=== PATIENT | male | born 1960 | race Two or more races ===

== ENCOUNTER → 2023-11-05 07:36 | Outpatient (REF) | payer OTHER, SELFPAY | LOC: EMG 07:36 | PROVIDERS: ATTENDING PHYSICIAN Orthopaedic Surgery Hand Surgery; FAMILY PHYSICIAN Internal Medicine | DX: M25.511 Pain in right shoulder (principal); R20.0 Anesthesia of skin | CPT/HCPCS: 95886; 95911 ==

== ENCOUNTER 2023-12-02 06:35 | Day surgery (SDC) | payer OTHER, MEDICARE, SELFPAY ==
[2023-11-24 10:31] VITALS: BMI 36.3
[2023-11-24 12:02] LABS: ALT (SGPT) 31 U/L (0-50); AST (SGOT) 55 U/L (17-59); Albumin 4.6 g/dl (3.5-5.0); Alkaline Phosphatase 123 U/L (38-126); Blood Urea Nitrogen 12 mg/dl (9-20); Calcium 9.1 mg/dl (8.4-10.2); Carbon Dioxide 21 mmol/L (22-30); Chloride 107 mmol/L (98-107); Estimated Creatinine Clearance 102 ml/min; Glucose 69 mg/dl (70-99); Potassium 4.5 mmol/L (3.5-5.1); Sodium 137 mmol/L (135-145); Total Bilirubin 2.5 mg/dl (0.2-1.3); Total Protein 7.8 g/dl (6.3-8.2); eGFR > 60.00
[2023-12-02] VITALS (15 sets, daily range): BP systolic 121–159; BP diastolic 78–98; BMI 36.3
[2023-12-02] MEDS: TYLENOL 1000 MG PO (11:10)
[2023-12-02] MEDS: CELEBREX 200 MG PO (11:10)
[2023-12-02] MEDS: NORMOSOL-R 1000 IV (11:37)
[2023-12-02 11:49] LABS: Hematocrit 30.3 % (39.0-52.0); Hemoglobin 11.3 g/dL (13.0-18.0); Mean Corp Hgb Conc. 37.3 g/dL (33.0-37.0); Mean Corpuscular Hgb 29.7 pg (27.0-31.0); Mean Corpuscular Volume 79.5 fL (80.0-94.0); Mean Platelet Volume 11.1 fL (7.4-10.4); Platelet Count 233 10^3/uL (130-400); Red Blood Cell Count 3.81 10^6/uL (4.70-6.10); Red Cell Dist. Width 15.9 % (11.5-14.5); White Blood Cell Count 9.1 10^3/uL (4.8-10.8)
[2023-12-02] MEDS: DEMEROL 12.5 MG IV ×2 (15:33→15:43)
[2023-12-02] MEDS: SUBLIMAZE 50 MCG IV ×3 (16:14→16:47)
[2023-12-02] MEDS: ZOFRAN 4 MG IV (16:37)
[2023-12-02] MEDS: SUBLIMAZE 25 MCG IV ×2 (17:01→17:11)
[2023-12-02] MEDS: ROXICODONE 10 MG PO (17:52)
== END 2023-12-02 18:36 | disposition home or self-care (01) ==
LOC: SDS 06:35
PROVIDERS: ATTENDING PHYSICIAN Orthopaedic Surgery Hand Surgery; FAMILY PHYSICIAN Student in an Organized Health Care Education/Training Program; OTHER PHYSICIAN Internal Medicine Cardiovascular Disease
DX: S42.252A Displaced fracture of greater tuberosity of left humerus, initial encounter for closed fracture (principal); X58.XXXA Exposure to other specified factors, initial encounter; M97.31XA Periprosthetic fracture around internal prosthetic right shoulder joint, initial encounter; G56.21 Lesion of ulnar nerve, right upper limb
CPT/HCPCS: 24140; 64718; 36415; 73030; 80053; 85027; 87070; C1776

== ENCOUNTER → 2024-02-10 07:31 | Outpatient (REF) | payer OTHER, MEDICARE, SELFPAY | LOC: HWRAD 07:31 | PROVIDERS: ATTENDING PHYSICIAN Student in an Organized Health Care Education/Training Program; FAMILY PHYSICIAN Internal Medicine | DX: M19.012 Primary osteoarthritis, left shoulder (principal) | CPT/HCPCS: 73200 ==

== ENCOUNTER → 2024-02-12 07:08 | Outpatient (REF) | payer OTHER, MEDICARE, SELFPAY | LOC: MRI 3T 07:08 | PROVIDERS: ATTENDING PHYSICIAN Orthopaedic Surgery Hand Surgery; FAMILY PHYSICIAN Internal Medicine | DX: M19.012 Primary osteoarthritis, left shoulder (principal) | CPT/HCPCS: 73221 ==

== ENCOUNTER 2024-08-24 13:38 | Inpatient (IN) | payer OTHER, MEDICARE, SELFPAY ==
[2024-07-26 13:38] LABS: Hematocrit 29.9 % (39.0-52.0); Hemoglobin 10.8 g/dL (13.0-18.0); Mean Corp Hgb Conc. 36.1 g/dL (33.0-37.0); Mean Corpuscular Hgb 29.4 pg (27.0-31.0); Mean Corpuscular Volume 81.5 fL (80.0-94.0); Platelet Count 239 10^3/uL (130-400); Red Blood Cell Count 3.67 10^6/uL (4.70-6.10); Red Cell Dist. Width 15.3 % (11.5-14.5); White Blood Cell Count 8.8 10^3/uL (4.8-10.8)
[2024-07-26 13:58] VITALS: BMI 28.7
[2024-07-26 14:26] LABS: ALT (SGPT) 22 U/L (0-50); AST (SGOT) 34 U/L (17-59); Albumin 4.5 g/dl (3.5-5.0); Alkaline Phosphatase 96 U/L (38-126); Blood Urea Nitrogen 9 mg/dl (9-20); Calcium 8.9 mg/dl (8.4-10.2); Carbon Dioxide 26 mmol/L (22-30); Chloride 106 mmol/L (98-107); Estimated Creatinine Clearance 95 ml/min; Glucose 84 mg/dl (70-99); Potassium 4.5 mmol/L (3.5-5.1); Sodium 142 mmol/L (135-145); Total Bilirubin 1.5 mg/dl (0.2-1.3); Total Protein 7.4 g/dl (6.3-8.2); eGFR > 60.00
[2024-07-26 17:55] VITALS: BMI 28.7
[2024-08-24] VITALS (25 sets, daily range): BP systolic 121–171; BP diastolic 76–112; BMI 28.7
[2024-08-24] MEDS: NORMOSOL-R/PLASMALYTE-A 1000 IV ×2 (08:14→17:09)
[2024-08-24] MEDS: MOBIC 15 MG PO (08:14)
[2024-08-24] MEDS: TYLENOL 1000 MG PO (08:14)
[2024-08-24] MEDS: BACTROBAN NASAL 1 GRAM NASAL (08:14)
--- NOTE | 2024-08-24 11:04 | W.DS.TRANS ---
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
-
Discharge Instructions:
Discharge Diagnosis/Procedures L TSA 08/24/24
Diet As tolerated
Activity No strenuous activity
Additional Activity Adequate hydration, minimize Oxy and wear TEDs
stockings to prevent low blood pressure/
dizziness
Driving Restrictions No driving
Instructions:
Stand-Alone Forms: SDS Total Shoulder D/C Inst.
Changes to Home Medications: Yes
Discharge Medications:
DC Medications w/original date entered in [employer]
albuterol sulfate 90 mcg/actuation aerosol inhaler 2 puff inhalation Q6H PRN COPD 11/23/23
ascorbic acid (vitamin C) 500 mg tablet (Vitamin C) 500 mg PO DAILY 11/23/23
aspirin 81 mg tablet,delayed release 81 mg PO DAILY 11/23/23
budesonide 160 mcg-glycopyr 9 mcg-formot 4.8 mcg/actuation HFA inhaler (Breztri Aerosphere) 2 inh inhalation BID 11/23/23
fluticasone propionate 50 mcg/actuation nasal spray,suspension 2 spray intranasal DAILY 11/23/23
folic acid 1 mg tablet 1 mg PO DAILY 11/23/23
hydroxychloroquine 200 mg tablet (Plaquenil) 200 mg PO BID 11/23/23
mecobalamin (vitamin B12) 1,000 mcg chewable tablet 1,000 mcg PO DAILY 11/23/23
multivitamin 1 tab PO DAILY 11/23/23
omeprazole magnesium 20 mg tablet,delayed release (Prilosec OTC) 20 - 40 mg PO DAILY 11/23/23
oxybutynin chloride 10 mg tablet,extended release 24 hr 10 mg PO DAILY 11/23/23
oxycodone 10 mg tablet,crush resistant,extended release 12 hr (OxyContin) 10 mg PO BID 11/23/23
rsfeunecee-werkallbtkuhs-lkzlqitj 50 mg-325 mg-40 mg tablet 1 tab PO PRN PRN Migraines 07/25/24
cholecalciferol (vitamin D3) 50 mcg (2,000 unit) capsule (Vitamin D3) 50 mcg PO DAILY 07/25/24
docusate sodium 100 mg capsule (Colace) 100 mg PO BID 07/25/24
tirzepatide (weight loss) 10 mg/0.5 mL subcutaneous pen injector (Zepbound) 10 mg SC MO 07/25/24
mupirocin 2 % topical ointment 1 applic topical BID infection prevention #1 tube 07/26/24
Saccharomyces boulardii 250 mg capsule (Florastor) 250 mg PO BID #1 cap 08/24/24
doxycycline hyclate 100 mg capsule 100 mg PO BID infection prevention #10 caps 08/24/24
magnesium hydroxide 400 mg/5 mL oral suspension (Milk of Magnesia) 30 ml PO HS PRN constipation #1 mL 08/24/24
oxycodone 15 mg tablet 15 mg PO QID PRN moderate-severe pain #0 tabs 08/24/24
ramipril 10 mg capsule 20 mg (2 x 10 mg) PO DAILY #0 caps 08/24/24
rivaroxaban 10 mg tablet (Xarelto) 10 mg PO DAILY Blood clot prevention/tx #90 tabs 08/24/24
sennosides 8.6 mg tablet (Senokot) 17.2 mg (2 x 8.6 mg) PO BID laxative #2 tabs 08/24/24
tamsulosin 0.4 mg capsule 0.4 mg PO DAILY #0 caps 08/24/24
Home Medication Changes
mupirocin 2 % topical ointment 1 applic topical BID infection prevention #1 tube 07/26/24
Saccharomyces boulardii 250 mg capsule (Florastor) 250 mg PO BID #1 cap 08/24/24
doxycycline hyclate 100 mg capsule 100 mg PO BID infection prevention #10 caps 08/24/24
magnesium hydroxide 400 mg/5 mL oral suspension (Milk of Magnesia) 30 ml PO HS PRN constipation #1 mL 08/24/24
rivaroxaban 10 mg tablet (Xarelto) 10 mg PO DAILY Blood clot prevention/tx #90 tabs 08/24/24
sennosides 8.6 mg tablet (Senokot) 17.2 mg (2 x 8.6 mg) PO BID laxative #2 tabs 08/24/24
Pending Results: No
[2024-08-24] MEDS: DEMEROL 25 MG IV ×4 (12:26→18:40)
--- NOTE | 2024-08-24 13:12 | W.PN.UPDATE ---
Update Note
Progress Note Update
AVN-L TSA 08/24/24
DVT ppx-Xarelto 10mg hs x 6-12 weeks per heme
-increase bowel meds
-incentive spirometry
-nebs
-IV Decadron
-ppx abx infection prevention
-Flomax
-adjust pain regimen-opioid tolerant/dependent
PMH:
1. Avascular necrosis of the left humeral head.
2. Sickle cell anemia.
3. History of recurrent pneumonia.
4. Splenic infarcts.
5. History RLE DVT s/p Xarelto course.
6. History of upper extremity DVT, patient reported.
7. GERD.
8. Bladder dysfunction.
9. BPH with urinary retention.
10. Hypertension.
11. Migraines.
12. History of small bowel obstruction requiring resection.
13. Obstructive sleep apnea, resolved with weight loss.
14. History of remote tobacco abuse.
15. DDD/spinal stenosis.
16. RA.
17. COPD
18. Asthma.
[2024-08-24] MEDS: FLOMAX 0.4 MG PO (13:38)
[2024-08-24] MEDS: ROXICODONE 15 MG PO ×2 (13:46→17:56)
[2024-08-24] MEDS: NSS (PRESERVATIVE FREE) 1 ML IV (13:54)
[2024-08-24] MEDS: ATIVAN 2 MG IV (13:54)
[2024-08-24] MEDS: DECADRON 4 MG IV ×2 (13:58→21:33)
[2024-08-24] MEDS: LYRICA 100 MG PO (14:14)
[2024-08-24] MEDS: ANCEF 5 IV ×2 (14:24→21:38)
[2024-08-24] MEDS: LYRICA PO (15:50)
[2024-08-24] MEDS: TYLENOL 650 MG PO ×2 (17:09→21:34)
[2024-08-24] MEDS: XARELTO 10 MG PO (17:53)
[2024-08-24] MEDS: DEMEROL 75 MG IV ×2 (19:26→21:36)
--- NOTE | 2024-08-24 19:50 | W.PN.HOSP.TC ---
Today's Communication/Plan
-
will follow for medical management
Assessment / Plan
Assessment / Plan
s/p left shoulder arthroplasty for avascular necrosis
post operative pain
allergy to Fentanyl, Dilaudid, Morphine and Sulfa
Hx of Sickle Cell Anemia
GERD
Rec:Pt main concern currently is pain. A pain control protocol is in place and I discussed this with the patient and Cinthya Staton was made aware of patient's concern regarding narcotic analgesic treatment. We will follow pt for medical aspects,
defer operative concerns to attending.
Thank you for consult. See dictated note
Anticipated Discharge: 24 - 48 hours
Subjective/Interval History
-
Date of Service: August 24, 2024
Asked to see patient post operatively to assist in medical management
Objective Data
-
Vital Signs:
Vital Signs
Temp Pulse Resp BP Pulse Ox
97.9 F 67 16 146/83 93
08/24/24 18:09 08/24/24 18:09 08/24/24 18:09 08/24/24 18:09 08/24/24 18:09
I&O
08/23/24 08/24/24 08/25/24
06:59 06:59 06:59
Intake Total 550 / 550
Balance 550 / 550
Review of Systems
-
History Source: Patient, Family ( at bedside) and Coordinated Provider
Constitutional: Denies Fever
EENT: Reports No Symptoms Reported
Respiratory: Reports No Symptoms
Cardiac: Reports No Symptoms
Abdomen/GI: Reports No Symptoms
Genitourinary: Reports No Symptoms
Musculoskeletal: Reports Joint Pain (severe pain in left shoulder operative site)
Skin: Reports No Symptoms
Neuro: Reports No Symptoms
Physical Exam
-
General: Well Developed, Well Nourished, Appears in Distress and Pain
HEENT: Normocephalic, Atraumatic and Moist Mucous Membranes
Respiratory: Clear to Auscultation; Negative Wheezes, Rales or Rhonchi
Cardiac: Regular Rhythm and S1/S2
GI: Soft, Nontender and Nondistended
Genito-urinary: No Costovertebral Tender
Musculoskeletal: No Clubbing, No Cyanosis, No Edema and Other (left shoulder very painful)
Neuro: Awake, Alert and Oriented
Psych: Agitated
[2024-08-24] MEDS: DUONEB 3 ML INH (21:14)
[2024-08-24] MEDS: SYMBICORT 160/4.5 MCG INHALER 2 PUFF INH (21:15)
[2024-08-24] MEDS: SENOKOT 17.2 MG PO (21:34)
[2024-08-24] MEDS: PLAQUENIL 200 MG PO (21:34)
[2024-08-24] MEDS: COLACE 100 MG PO (21:34)
[2024-08-24] MEDS: LYRICA 75 MG PO (21:36)
[2024-08-24] MEDS: MILK OF MAGNESIA 30 ML PO (21:36)
[2024-08-24] MEDS: ATIVAN IV (23:20)
[2024-08-24] MEDS: NSS (PRESERVATIVE FREE) IV (23:20)
[2024-08-24] MEDS: BACTROBAN 2% OINTMENT NASAL (23:47)
[2024-08-25] VITALS (10 sets, daily range): BP systolic 118–176; BP diastolic 68–98; PULSE 66–71; O2SAT 95–97
[2024-08-25] MEDS: TYLENOL PO (00:26)
[2024-08-25] MEDS: OXYCONTIN (CONTROLLED RELEASE) PO (00:26)
[2024-08-25] MEDS: TYLENOL 650 MG PO ×5 (03:42→21:15)
[2024-08-25] MEDS: DEMEROL 75 MG IV ×9 (03:43→22:08)
[2024-08-25] MEDS: ANCEF 5 IV (05:16)
[2024-08-25] MEDS: ALTACE 10 MG PO ×2 (07:41→13:18)
[2024-08-25] MEDS: LYRICA 75 MG PO ×3 (07:41→21:16)
[2024-08-25] MEDS: OXYCONTIN (CONTROLLED RELEASE) 15 MG PO ×2 (07:41→21:15)
[2024-08-25] MEDS: PLAQUENIL 200 MG PO ×2 (07:41→21:15)
[2024-08-25] MEDS: SENOKOT 17.2 MG PO ×2 (07:41→21:14)
[2024-08-25] MEDS: DECADRON 4 MG IV ×2 (07:42→21:15)
[2024-08-25] MEDS: DUONEB 3 ML INH ×2 (07:43→19:53)
[2024-08-25] MEDS: SYMBICORT 160/4.5 MCG INHALER 2 PUFF INH ×2 (07:43→19:53)
[2024-08-25] MEDS: NSS (PRESERVATIVE FREE) 0.5 ML IV ×2 (07:45→21:19)
[2024-08-25] MEDS: ATIVAN 1 MG IV ×2 (07:45→21:18)
[2024-08-25] MEDS: BACTROBAN 2% OINTMENT 1 APPLIC NASAL ×2 (07:46→21:14)
[2024-08-25] MEDS: COLACE 100 MG PO ×2 (07:58→21:15)
--- NOTE | 2024-08-25 10:47 | CM ---
Addendum entered by Tatiana Colmenares RN 08/25/24 13:48:
[facility]
Addendum entered by Tatiana Colmenares RN 08/25/24 13:46:
[facility] is unable to accept patient.
ETHEL sent referral to [facility].
Addendum entered by Tatiana Colmenares RN 08/25/24 13:16:
[facility] cannot accept.
[facility]
Addendum entered by Tatiana Colmenares RN 08/25/24 12:00:
[facility] is unable to accept. [facility].
Original Note:
Cm reviewed medical records. Patient lives independently with . Patent does have a history of [facility], but does not remember the agency. Patient has not been to rehab. Patient relies on a cane for ambulation.
Patient is agreeable to home care. Referral sent via [place].
PLAN: home with [facility], pending [facility] acceptance.
--- NOTE | 2024-08-25 12:01 | W.PN.ORTHO ---
Today's Communication / Plan
-
d/c if stable
Assessment
.
Distal Motor Intact: Yes
Dressing:
Clean, dry and intact.
Assessment:
Sickle cell
Chronic pain/opioid tolerance/dependance
-patient hx of recurrent crisis p/o and required Demerol IVP-this was extensively discussed with pharmacy following OR
-pain is currently controlled with no indication of crisis nor respiratory suppression-capnography utilized
Obstructive sleep apnea, resolved with weight loss.
History of remote tobacco abuse.
COPD
Asthma.
-incentive spirometry
-nebs
-IV Decadron
-ppx abx infection prevention
-O2 sats stable
Hypercoagulable state
Hx recurrent DVT
-hematology cleared-discussed with Dr. Vandana Castañeda re blood clot prevention
-Xarelto initiated evening of surgery and to be continued >6weeks until otherwise advised
History of small bowel obstruction requiring resection
-increase bowel meds and stress adherence to bowel regimen at home with adequate hydration
BPH with urinary retention.
-Flomax

PMH:
1. Avascular necrosis of the left humeral head.
2. Sickle cell anemia.
3. History of recurrent pneumonia.
4. Splenic infarcts.
5. History RLE DVT s/p Xarelto course.
6. History of upper extremity DVT, patient reported.
7. GERD.
8. Bladder dysfunction.
9. BPH with urinary retention.
10. Hypertension.
11. Migraines.
12. History of small bowel obstruction requiring resection.
13. Obstructive sleep apnea, resolved with weight loss.
14. History of remote tobacco abuse.
15. DDD/spinal stenosis.
16. RA.
17. COPD
18. Asthma.
Plan
.
Surgery / Date: AVN-L shoulder hemiarthroplasty 08/24/24
DVT Prophylaxis: Other (Xarelto 10mg hs x 6-12 weeks per heme)
Activity:
Out of bed.
PT/OT
Discharge Plan: Home
Subjective
.
.:
Patient resting comfortably.
Vital Signs and Labs
.
Vital Signs and Labs:
Lab Results
07/26/24 12:59
07/26/24 12:59
Temp Pulse Resp BP Pulse Ox
97.9 F 105 18 171/98 95
08/25/24 11:12 08/25/24 11:12 08/25/24 11:12 08/25/24 11:12 08/25/24 11:12
Non-invasive Hgb result: 14.4
Physical Exam
-
HEENT: No pallor, cyanosis, or jaundice. Throat clear.
NECK: Supple. No JVD.
RESPIRATORY: Lungs clear to auscultation.
CVS: S1, S2 normal. RRR.� No murmur, rub or gallop.
ABDOMEN: Soft, non-tender. No distension. BS+/normal.
EXTREMITIES: strength equal, no calf pain with palpation
EPIDEMIOLOGY INTERNSHIP: AOx3. No focal deficits. processing rep grossly intact
[2024-08-25 12:40] LABS: Hemoglobin 10.5 g/dL (13.0-18.0)
[2024-08-25 12:55] LABS: Blood Urea Nitrogen 15 mg/dl (9-20); Calcium 8.4 mg/dl (8.4-10.2); Carbon Dioxide 28 mmol/L (22-30); Chloride 106 mmol/L (98-107); Estimated Creatinine Clearance 84 ml/min; Glucose 180 mg/dl (70-99); Potassium 4.2 mmol/L (3.5-5.1); Sodium 141 mmol/L (135-145); eGFR > 60.00
--- NOTE | 2024-08-25 13:37 | W.PN.HOSP.TC ---
Today's Communication/Plan
-
continue usual dose of Altace
Assessment / Plan
Assessment / Plan
s/p left shoulder arthroplasty for avascular necrosis
post operative pain
allergy to Fentanyl, Dilaudid, Morphine and Sulfa
Hx of Sickle Cell Anemia
GERD
Hypertension with elevated BP today
Resume Altace today. Initially pt was ordered 10 mg this morning as was concerned about BP drop in pt having received narcotic analgesia.. BP was followed closely and eventually decided to resume preadmission dosing. He should be discharged on
his usual dose
Pt is medically cleared for dc as per orthopedist/attending
Anticipated Discharge: Today
Subjective/Interval History
-
Date of Service: August 25, 2024
Feels better today
Objective Data
-
Labs:
Laboratory Results
08/25/24
12:24
Hgb 10.5 L
Sodium 141
Potassium 4.2
Chloride 106
Carbon Dioxide 28
BUN 15
Creatinine 0.9
Glucose 180 H
Calcium 8.4
Vital Signs:
Vital Signs
Temp Pulse Resp BP Pulse Ox
97.9 F 105 18 171/94 95
08/25/24 11:12 08/25/24 11:12 08/25/24 11:12 08/25/24 13:18 08/25/24 11:12
I&O
08/24/24 08/25/24 08/26/24
06:59 06:59 06:59
Intake Total 1950 / 1950 900 / 900
Output Total 1100 / 1100
Balance 850 / 850 900 / 900
Review of Systems
-
History Source: Patient and Coordinated Provider
Constitutional: Denies Fever
EENT: Reports No Symptoms Reported
Respiratory: Reports No Symptoms
Cardiac: Reports No Symptoms
Abdomen/GI: Reports No Symptoms
Genitourinary: Reports No Symptoms
Musculoskeletal: Reports Joint Pain (severe pain in left shoulder operative site)
Skin: Reports No Symptoms
Neuro: Reports No Symptoms
Physical Exam
-
General: Well Developed, Well Nourished, Appears in Distress and Pain
HEENT: Normocephalic, Atraumatic and Moist Mucous Membranes
Respiratory: Clear to Auscultation; Negative Wheezes, Rales or Rhonchi
Cardiac: Regular Rhythm and S1/S2
GI: Soft, Nontender and Nondistended
Genito-urinary: No Costovertebral Tender
Musculoskeletal: No Clubbing, No Cyanosis, No Edema and Other (left shoulder less painful today)
Neuro: Awake, Alert and Oriented
Psych: Agitated
--- NOTE | 2024-08-25 14:20 | CM ---
Addendum entered by Tatiana Colmenares RN 08/26/24 14:02:
CM reviewed medical records. Patient has been referred to [facility] and is pending acceptance. Patient remain acutely ill at this time. CM will continue to follow,
PLAN: home with outpatient PT, [facility], pending acceptance.
Addendum entered by Tatiana Colmenares RN 08/25/24 14:38:
CM spoke with patient and . Patient advised this CM that patient has uncontrolled pain and will remain in the hospital. CM will continue to search for home care.
Original Note:
CM faxed referral to [facility] [phone]. CM confirmed that patient is in their service area.
[2024-08-25] MEDS: NSS 1000 IV (15:36)
--- NOTE | 2024-08-25 16:49 | W.PN.UPDATE ---
Update Note
Progress Note Update
Patient seen and examined. Left shoulder hemiarthroplasty 08/24/[address] Arce. Patient with a history of Sickle Cell Anemia. History of opioid tolerance/dependence. He reports that he is concerned with being discharged home today due to
pain. Pain regimen currently in place and medicine team on board; appreciate assistance. Will d/c discharge order for today. IVF and supplemental O2 ordered per Dr. Ivey. VSS. Demerol administration has been extensively discussed with [facility], [facility] (where he has previously been admitted) as well as the patient. Will maintain current dose of Demerol at 75mg q2HPRN as ordered in addition to other standing orders for pain. Discussed with hospitalist
[place]. Will continue to follow. All questions were answered.
[2024-08-25] MEDS: ROXICODONE 15 MG PO (16:55)
[2024-08-25] MEDS: XARELTO 10 MG PO (17:29)
--- NOTE | 2024-08-25 19:16 | W.PN.UPDATE ---
Update Note
Progress Note Update
Contacted by nursing and orthopedics. Pt is concerned that he is starting to progress into a sickle cell crisis and is requesting adjustment in his narcotics, placement on oxygen and IVF as well as hold on discharge. Orders for fluids and oxygen
ordered by me. will continue to follow.
Lungs remain clear and he is not tachycardic
[2024-08-25] MEDS: MILK OF MAGNESIA 30 ML PO (21:14)
[2024-08-26] VITALS (14 sets, daily range): BP systolic 142–170; BP diastolic 72–101
[2024-08-26] MEDS: TYLENOL PO (00:54)
[2024-08-26] MEDS: TYLENOL 650 MG PO ×5 (03:24→20:22)
[2024-08-26] MEDS: DEMEROL 75 MG IV ×4 (03:25→10:40)
[2024-08-26] MEDS: NSS 1000 IV ×2 (06:01→17:47)
[2024-08-26] MEDS: DUONEB 3 ML INH ×2 (07:27→20:15)
[2024-08-26] MEDS: SYMBICORT 160/4.5 MCG INHALER 2 PUFF INH ×2 (07:28→20:15)
--- NOTE | 2024-08-26 08:37 | W.PN.HOSP.TC ---
Addendum entered and electronically signed by Erick Ivey MD 08/26/24 16:20:
Pt will be transferred to the ICU on my service, discussed with ortho and Heme
Original Note:
Today's Communication/Plan
-
continue IVF, oxygen
Hematology consult
Assessment / Plan
Assessment / Plan
s/p left shoulder arthroplasty performed for avascular necrosis
post operative pain
allergy to Fentanyl, Dilaudid, Morphine and Sulfa
Hx of Sickle Cell Anemia
with pt believing he is going into a sickle cell crisis
GERD
Hypertension with elevated BP today
Resumed Altace yesterday. Initially pt was ordered 10 mg in the morning as was concerned about BP drop in pt having received narcotic analgesia.. BP was followed closely and eventually decided to resume preadmission dosing. Received an extra
10 mg as a second dose. BP continues to be on the higher side, will resume previous dose of 20 mg daily.
As pt believes he is in a sickle cell crisis, will request input from Hematology
[facility] management as per ortho
Anticipated Discharge: 24 - 48 hours
Subjective/Interval History
-
Date of Service: August 26, 2024
Still with pains, still believes he is going into Sickle Cell Crisis
Objective Data
-
Vital Signs:
Vital Signs
Temp Pulse Resp BP Pulse Ox
98.1 F 70 14 170/83 98
08/26/24 07:16 08/26/24 07:16 08/26/24 07:33 08/26/24 07:16 08/26/24 07:33
I&O
08/25/24 08/26/24 08/27/24
06:59 06:59 06:59
Intake Total 1950 / 1950 4780 / 4780
Output Total 1100 / 1100 1400 / 1400 520 / 520
Balance 850 / 850 3380 / 3380 -520 / -520
Review of Systems
-
History Source: Patient and Coordinated Provider
Constitutional: Denies Fever
EENT: Reports No Symptoms Reported
Respiratory: Reports No Symptoms; Denies Trouble Breathing
Cardiac: Reports No Symptoms; Denies Chest Pain
Abdomen/GI: Reports No Symptoms; Denies Abdominal Pain or Anorexia (good appetite)
Genitourinary: Reports No Symptoms
Musculoskeletal: Reports Joint Pain, Muscle Pain, Arthralgias and Myalgias
Neuro: Denies Dizzy
Physical Exam
-
General: Well Developed, Well Nourished and No Apparent Distress (though asking for pain meds)
HEENT: Normocephalic, Atraumatic and Moist Mucous Membranes
Respiratory: Clear to Auscultation; Negative Wheezes, Rales or Rhonchi
Cardiac: Regular Rhythm and S1/S2
GI: Soft, Nontender and Nondistended
Musculoskeletal: No Clubbing, No Cyanosis and No Edema
Skin: Warm and Dry
Neuro: Awake, Alert and Oriented
[2024-08-26] MEDS: ATIVAN 1 MG IV ×2 (08:47→20:21)
[2024-08-26] MEDS: PLAQUENIL 200 MG PO ×2 (08:48→20:23)
[2024-08-26] MEDS: COLACE 100 MG PO ×2 (08:48→20:22)
[2024-08-26] MEDS: SENOKOT 17.2 MG PO ×2 (08:48→20:22)
[2024-08-26] MEDS: OXYCONTIN (CONTROLLED RELEASE) 15 MG PO ×2 (08:48→20:37)
[2024-08-26] MEDS: LYRICA 75 MG PO ×3 (08:48→22:19)
[2024-08-26] MEDS: NSS (PRESERVATIVE FREE) 0.5 ML IV ×2 (08:49→20:21)
[2024-08-26] MEDS: ALTACE PO (08:49)
--- NOTE | 2024-08-26 09:06 | CON.ONC ---
Documented by User: REZA Morse 08/26/24 12:43
Consultation
-
Date Consultation Requested: 08/26/24
Date Consultation Performed: 08/26/24
Requesting Provider: Dr. Zapata
Performing Provider: Dr. Corona
Reason for Consultation: Dr. Corona
Impression
Impression
Sickle anish disease
s/p Left shoulder hemiarthroplasty 08/24/2024
post operative pain
opioid tolerance/dependence
on chronic DOAC for hx VTE
Plan
Plan
check hemolysis panel
O2 prn
ensure adequate hydration
on DOAC for hx VTE
post operative pain management per ortho
with allergy of hallucinations from Dilaudid and morphine. In addition, Demerol is out of stock so would consider pain management or palliative care consult for additional pain management support
OP follow up with primary hematology for continued management of sickle cell disease
Patient History
History of Present Illness
63yo M with sickle cell disease with chronic opioid dependence presented for an elective left total shoulder arthroplasty for left humeral head avascular necrosis on 08/24/2024. He was admitted for pain management. Hematology is consulted for history
of sickle cell disease. Hgb is unchanged compared to 07/26/2024. He reports pain in his lower back and down bilateral legs. He feels that his surgical arm pain is well controlled with immobility.
In brief, he has sickle cell disease, autosplenectomy, chronic pain syndrome for which he follows with Dr. Castañeda for hematology management of his sickle cell. He has historically decline management with Hydrea, however, does take folic acid 1mg
daily. He uses Plaquenil and etanercept for management of his RA. His chronic pain regimen includes OxyContin 10mg bid and oxycodone IR 15mg QiD prn. He reports hallucinations with morphine and Dilaudid. He is on chronic DOAC for hx of VTE.
Clinically, he denies fever, chills, cough, chest pain, sob, rubin, n/v/d or abdominal pain. He denies any overt bleeding or atypical bruising. He reports intentional weight loss using GLP1 receptor agonist.
Afebrile,no hypoxia or hypotension
Past-Medical/Surgical History
PMH sickle cell, asthma, avascular necrosis hip, CKD, COPD, DVT, HTN, DIZA, RA on etanercept, spinal stenosis, obesity, BPH, GERD
PSH appendectomy, cholecystectomy, right shoulder replacement, bowel resection, b/l total hip replacement,
Family sister sickle cell
Social former smoker, quit approx 20years ago, denies etoh or recreational drugs.
Patient Medication
�Medication �Instructions �Recorded �Confirmed �Last Taken �Type
albuterol sulfate 90 mcg/actuation 2 puff inhalation Q6H PRN COPD 11/23/23 08/24/24 08/22/24 History
aerosol inhaler
ascorbic acid (vitamin C) 500 mg 500 mg PO DAILY 11/23/23 08/24/24 08/17/24 History
tablet (Vitamin C)
aspirin 81 mg tablet,delayed 81 mg PO DAILY 11/23/23 08/24/24 08/17/24 History
release
budesonide 160 mcg-glycopyr 9 2 inh inhalation BID 11/23/23 08/24/24 08/17/24 History
mcg-formot 4.8 mcg/actuation HFA
inhaler (Breztri Aerosphere)
fluticasone propionate 50 2 spray intranasal DAILY 11/23/23 08/24/24 08/17/24 History
mcg/actuation nasal
spray,suspension
folic acid 1 mg tablet 1 mg PO DAILY 11/23/23 08/24/24 08/17/24 History
hydroxychloroquine 200 mg tablet 200 mg PO BID 11/23/23 08/24/24 08/21/24 History
(Plaquenil)
mecobalamin (vitamin B12) 1,000 1,000 mcg PO DAILY 11/23/23 08/24/24 08/17/24 History
mcg chewable tablet
multivitamin 1 tab PO DAILY 11/23/23 08/24/24 08/17/24 History
omeprazole magnesium 20 mg 20 - 40 mg PO DAILY 11/23/23 08/24/24 08/17/24 History
tablet,delayed release (Prilosec
OTC)
oxybutynin chloride 10 mg 10 mg PO DAILY 11/23/23 08/24/24 08/17/24 History
tablet,extended release 24 hr
oxycodone 10 mg tablet,crush 10 mg PO BID 11/23/23 08/24/24 08/23/24 22:00 History
resistant,extended release 12 hr
(OxyContin)
vdxhajtcma-khpnonexwsyst-zgkmspbx 1 tab PO PRN PRN Migraines 07/25/24 08/24/24 Unknown History
50 mg-325 mg-40 mg tablet
cholecalciferol (vitamin D3) 50 50 mcg PO DAILY 07/25/24 08/24/24 08/17/24 History
mcg (2,000 unit) capsule (Vitamin
D3)
docusate sodium 100 mg capsule 100 mg PO BID 07/25/24 08/24/24 08/17/24 History
(Colace)
tirzepatide (weight loss) 10 10 mg SC MO 07/25/24 08/24/24 08/13/24 History
mg/0.5 mL subcutaneous pen
injector (Zepbound)
mupirocin 2 % topical ointment 1 applic topical BID infection 07/26/24 Unknown Rx
prevention #1 tube
Saccharomyces boulardii 250 mg 250 mg PO BID #1 cap 08/24/24 Unknown Rx
capsule (Florastor)
doxycycline hyclate 100 mg capsule 100 mg PO BID infection prevention 08/24/24 Unknown Rx
#10 caps
magnesium hydroxide 400 mg/5 mL 30 ml PO HS PRN constipation #1 mL 08/24/24 Unknown Rx
oral suspension (Milk of Magnesia)
oxycodone 15 mg tablet 15 mg PO QID PRN moderate-severe 04/08/24/24 08/22/24 Rx
pain #0 tabs
ramipril 10 mg capsule 20 mg (2 x 10 mg) PO DAILY #0 caps 08/24/24 08/24/24 08/23/24 09:00 Rx
rivaroxaban 10 mg tablet (Xarelto) 10 mg PO DAILY Blood clot 08/24/24 Unknown Rx
prevention/tx #90 tabs
sennosides 8.6 mg tablet (Senokot) 17.2 mg (2 x 8.6 mg) PO BID 08/24/24 Unknown Rx
laxative #2 tabs
tamsulosin 0.4 mg capsule 0.4 mg PO DAILY #0 caps 08/24/24 08/24/24 08/17/24 Rx
Active Medications
Generic Name Dose Route Start Last Admin
Trade Name Freq PRN Reason Stop Dose Admin
Acetaminophen 650 mg 08/24/24 16:00 08/26/24 08:48
Acetaminophen 325 Mg Tablet PO 09/21/24 15:59 650 mg
Q4HWA SLOANE Administration
Acetaminophen/Butalbital/Caffeine 1 tab 08/24/24 13:21
Butalbit/Acetaminophen/Caffeine PO 09/22/24 07:59
DAILY PRN
migraine
Al Hydrox/Mg Hydrox/Simethicone 30 ml 08/24/24 14:04
Mag/Al/Simethicone Suspension 30 Ml Cup PO 09/21/24 14:03
Q4HPRN PRN
indigestion
Albuterol/Ipratropium 3 ml 08/24/24 20:00 08/26/24 07:27
Ipratropium 0.5/Albuterol 3 Mg (3 Ml Ampul) INH 3 ml
R BID SLOANE Administration
Protocol
Budesonide/Formoterol Fumarate 2 puff 08/24/24 20:00 08/26/24 07:28
Symbicort Inhaler 160/4.5 INH 09/21/24 19:59 2 puff
R BID SLOANE Administration
Docusate Sodium 100 mg 08/24/24 20:00 08/26/24 08:48
Docusate Sodium 100 Mg Capsule PO 09/21/24 19:59 100 mg
BID SLOANE Administration
Hydroxychloroquine Sulfate 200 mg 08/24/24 20:00 08/26/24 08:48
Hydroxychloroquine 200 Mg Tablet PO 09/21/24 19:59 200 mg
BID SLOANE Administration
Sodium Chloride 1,000 mls @ 75 mls/hr 08/25/24 15:30 08/26/24 06:01
Nss IV 1,000 mls
.[id number] SLOANE Administration
Lorazepam 1 mg 08/24/24 20:00 08/26/24 08:47
Lorazepam 2 Mg/Ml Vial IV 09/21/24 19:59 1 mg
BID SLOANE Administration
Magnesium Hydroxide 30 ml 08/24/24 22:00 08/25/24 21:14
Milk Of Magnesia 30 Ml Cup PO 09/21/24 21:59 30 ml
HS SLOANE Administration
Meperidine HCl 75 mg 08/24/24 18:58 08/26/24 08:40
Meperidine 25 Mg/Ml Injection IV 09/07/24 18:57 75 mg
Q2HPRN PRN Administration
SICKLE CELL PAIN
Naloxone HCl 0.04 mg 08/24/24 16:00
Naloxone (0.4 Mg/Ml) 1 Ml Injection IV 09/21/24 15:59
Q2MPRN PRN
RR </= 10/min / Pasero scale=4
Ondansetron HCl 4 mg 08/24/24 15:15
Ondansetron 4 Mg/2 Ml Vial IV 09/21/24 15:14
Q6HPRN PRN
nausea and vomiting
Oxycodone HCl 15 mg 08/24/24 13:29 08/25/24 16:55
Oxycodone 5 Mg Regular Release Tablet PO 09/07/24 13:28 15 mg
Q4HPRN PRN Administration
mild-moderate pain
Oxycodone HCl 20 mg 08/24/24 13:29
Oxycodone 10 Mg Regular Release Tablet PO 09/07/24 13:28
Q4HPRN PRN
severe pain
Oxycodone HCl 15 mg 08/24/24 20:00 08/26/24 08:48
Oxycontin 15 Mg Controlled Release Tablet PO 09/07/24 19:59 15 mg
BID SLOANE Administration
Pregabalin 75 mg 08/24/24 16:00 08/26/24 08:48
Pregabalin 75 Mg Capsule PO 09/21/24 15:59 75 mg
TID SLOANE Administration
Ramipril 20 mg 08/26/24 08:50
Ramipril (Altace) 10 Mg Capsule PO 09/22/24 07:59
DAILY SLOANE
Rivaroxaban 10 mg 08/24/24 18:00 08/25/24 17:29
Rivaroxaban 10 Mg Tablet PO 09/21/24 17:59 10 mg
QPM SLOANE Administration
Sennosides 17.2 mg 08/24/24 20:00 08/26/24 08:48
Sennosides (Senokot) 8.6 Mg Tablet PO 09/21/24 19:59 17.2 mg
BID SLOANE Administration
Sodium Chloride 0 flush 08/24/24 06:00
Sodium Chloride 0.9% (Flush) Syringe IV 09/21/24 05:59
PER PROTOCOL SLOANE
Sodium Chloride 0.5 ml 08/24/24 20:00 08/26/24 08:49
Nss (Pf) 10 Ml Vial For Ativan 1 Mg Dose IV 09/21/24 19:59 0.5 ml
BID SLOANE Administration
Sodium Chloride 0.9 ml 08/24/24 16:00
Sodium Chloride 0.9% (Preservative Free) 10 Ml Vial IV 09/21/24 15:59
Q2MPRN PRN
naloxone dilution
Tamsulosin HCl 0.4 mg 08/24/24 15:18
Tamsulosin 0.4 Mg Capsule PO 09/21/24 15:17
DAILYPRN PRN
bladder scan volume > 400 mL
Review of Systems
-
ROS is notable for HPI, otherwise unremarkable
Physical Exam
-
General: Well Developed, No Apparent Distress and Obese
HEENT: Moist Mucous Membranes; Negative Jaundice
Cardiology: Normal Sinus Rhythm
Pulmonary: Clear
GI: Soft
Musculoskeletal: Other (LUE arm in immobilizer, sling)
Extremities: Pulses Present; Negative Edema
Neurology: Non Focal
Skin: Other (surgical site CDI)
Psych: Calm
Labs
Lab Results
WBC 8.8 10^3/uL (4.8-10.8) 07/26/24 12:59
RBC 3.67 10^6/uL (4.70-6.10) L 07/26/24 12:59
Hgb 10.5 g/dL (13.0-18.0) L 08/25/24 12:24
Hct 29.9 % (39.0-52.0) L 07/26/24 12:59
MCV 81.5 fL (80.0-94.0) 07/26/24 12:59
MCH 29.4 pg (27.0-31.0) 07/26/24 12:59
MCHC 36.1 g/dL (33.0-37.0) 07/26/24 12:59
RDW 15.3 % (11.5-14.5) H 07/26/24 12:59
Plt Count 239 10^3/uL (130-400) 07/26/24 12:59
MPV 11.0 fL (7.4-10.4) H 07/26/24 12:59
Creatinine 0.9 mg/dL (0.7-1.3) 08/25/24 12:24
Vital Signs
Vital Signs
Temp Pulse Resp BP Pulse Ox
98.1 F 70 14 170/83 98
08/26/24 07:16 08/26/24 07:16 08/26/24 07:33 08/26/24 07:16 08/26/24 07:33

Documented by User: Cheo Corona MD 08/26/24 12:46
Impression
Impression
Sickle cell disease
s/p Left shoulder hemiarthroplasty 08/24/2024
post operative pain
opioid tolerance/dependence
on chronic DOAC for hx VTE
Hematology Addendum:
Patient seen and evaluated and agree w/ MOBILE EQUIPMENT OPERATOR note and plan as outlined
-h/o sickle cell disease
-multifactorial pain - s/p recent left shoulder hemiarthroplasty
-hemoglobin is stable and hemolysis labs do not indicated significant hemolysis - retic 3.5%
-follow CBC and hemolytic parameters
-pain control
Will continue to follow with you.
--- NOTE | 2024-08-26 09:25 | CM ---
Cm reviewed medical records. Patient is not medically ready for discharge. CM will continue to follow. Pending acceptance by home PT agency.
PLAN: Home with Outpatient PT.
[2024-08-26 10:34] LABS: % Basophils 0.1 % (0-2); % Eosinophils 0.2 % (0-6); % Immature Granulocytes 0.5 % (0-0.5); % Lymphocytes 10.6 % (20.5-51.1); % Monocytes 11.3 % (1.7-9.3); % Neutrophils 77.3 % (42.2-75.2); Absolute Immature Granulocytes 0.1 10^3/uL (0-0.05); Absolute Lymphocytes 1.6 10^3/uL (1.2-3.4); Absolute Monocytes 1.7 10^3/uL (0.1-0.6); Absolute Neutrophils 11.6 10^3/uL (1.4-6.5); Hematocrit 27.5 % (39.0-52.0); Mean Corp Hgb Conc. 36.4 g/dL (33.0-37.0); Mean Corpuscular Hgb 29.4 pg (27.0-31.0); Mean Corpuscular Volume 80.9 fL (80.0-94.0); Mean Platelet Volume 10.5 fL (7.4-10.4); Nucleated Red Blood Cells % 0.7 % (-); Platelet Count 206 10^3/uL (130-400); Red Cell Dist. Width 14.9 % (11.5-14.5); Reticulocyte Count 3.5 % (0.4-2.8)
[2024-08-26] MEDS: ALTACE 20 MG PO (10:40)
[2024-08-26 11:37] LABS: ALT (SGPT) 23 U/L (0-50); AST (SGOT) 26 U/L (17-59); Albumin 3.7 g/dl (3.5-5.0); Alkaline Phosphatase 79 U/L (38-126); Direct Bilirubin 0.3 mg/dl (0.0-0.4); LDH 255 U/L (120-246); Total Bilirubin 0.9 mg/dl (0.2-1.3); Total Protein 6.5 g/dl (6.3-8.2)
[2024-08-26] MEDS: DEMEROL 50 MG IV ×3 (12:45→16:57)
[2024-08-26] MEDS: DEMEROL 25 MG IV ×3 (12:45→16:57)
--- NOTE | 2024-08-26 14:32 | W.PN.ORTHO ---
Today's Communication / Plan
-
transfer ICU-discussed w/ Dr. Brothers
Assessment
.
Distal Motor Intact: Yes
Dressing:
Clean, dry and intact.
Assessment:
Sickle cell
Chronic pain/opioid tolerance/dependance
-patient hx of recurrent crisis p/o and required Demerol IVP-this was extensively discussed with pharmacy following OR--intolerant of Dilaudid and Morphine due to intractable nausea
-pain is currently uncontrolled-no respiratory suppression-capnography utilized-transitioning to IV Fentanyl per discussion w/ pharmacy and patient
Obstructive sleep apnea, resolved with weight loss.
History of remote tobacco abuse.
COPD
Asthma.
-incentive spirometry
-nebs
-IV Decadron
-ppx abx infection prevention
-O2 sats stable
Hypercoagulable state
Hx recurrent DVT
-hematology cleared-discussed with Dr. Vandana Castañeda re blood clot prevention
-Xarelto initiated evening of surgery and to be continued >6weeks until otherwise advised
Acute RLE calf pain-RUE pain/edema--hx DVT RUE--venous duplex ordered of B/L LE and RUE-no L shoulder pain
History of small bowel obstruction requiring resection
No BM since admit
-increase bowel meds -BS x 4Q+
BPH with urinary retention.
-Flomax-voiding well

PMH:
1. Avascular necrosis of the left humeral head.
2. Sickle cell anemia.
3. History of recurrent pneumonia.
4. Splenic infarcts.
5. History RLE DVT s/p Xarelto course.
6. History of upper extremity DVT, patient reported.
7. GERD.
8. Bladder dysfunction.
9. BPH with urinary retention.
10. Hypertension.
11. Migraines.
12. History of small bowel obstruction requiring resection.
13. Obstructive sleep apnea, resolved with weight loss.
14. History of remote tobacco abuse.
15. DDD/spinal stenosis.
16. RA.
17. COPD
18. Asthma.
Plan
.
Surgery / Date: AVN-L shoulder hemiarthroplasty 08/24/24
DVT Prophylaxis: Other (Xarelto 10mg qhs + SCD)
Activity:
Out of bed.
PT/OT
Subjective
.
.:
RUE and RLE pain -02/03
Vital Signs and Labs
.
Vital Signs and Labs:
Lab Results
08/26/24 10:23
08/25/24 12:24
Temp Pulse Resp BP Pulse Ox
98.0 F 67 16 161/76 97
08/26/24 11:14 08/26/24 11:14 08/26/24 11:14 08/26/24 11:14 08/26/24 11:14
Non-invasive Hgb result: 15.4
Physical Exam
-
HEENT: No pallor, cyanosis, or jaundice. Throat clear.
NECK: Supple. No JVD.
RESPIRATORY: Lungs clear to auscultation.
CVS: S1, S2 normal. RRR.� No murmur, rub or gallop.
ABDOMEN: Soft, non-tender. No distension. BS+/normal.
EXTREMITIES: strength equal, +R calf pain with palpation, RUE edema
TACK WELDER: AOx3. No focal deficits. hair specialist grossly intact
--- NOTE | 2024-08-26 14:34 | CON.INTV ---
Consultation
Consultation Request
Date/Time Consultation Requested: 08/26/2024-2:30 PM
Date/Time Consultation Performed: 08/26/24-2:30 PM
Requesting Provider: hospitalist
Performing Provider: Dr. Meza
Reason for Consultation: sickle cell crisis/critical care management
Medical History
-
Chief Complaint: severe pain/sickle cell crisis
History of Present Illness:
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
sickle cell crisis-nutritionist public health consulted for sickle cell crisis/pain management/critical care management 08/26/2024.. The patient states that he has had multiple exacerbations and sickle cell crises in the past. He states that is usually treated
with Demerol, oxygen and IV fluids. He has never been on hydroxyurea. He has tried a fentanyl patch and it was variable in its effectiveness in the past. He currently denies any shortness of breath, chest congestion, chest pain, productive cough,
abdominal pain, nausea and just admits to lower extremity pains that are consistent with his sickle cell crisis.
Past Medical History
Past Medical History: None ( Sickle cell disease. Avascular necrosis. BPH. COPD/Asthma. Hypertension. Migraines. DIAZ resolved with weight loss.Rheumatoid arthritis. Spinal stenosis. Recurrent DVT on chronic anticoagulation.
Appendectomy. Cholecystectomy. Small bowel obstruction/resection.. Bi hip arthroplasty.)
Social History
Tobacco: Former Smoker ( quit 18 years ago)
Alcohol: Occasional
Drug: None
Personal:
Living: With Family
Occupational Exposures: no known asbestos exposure
Environmental Exposures: no known tuberculosis exposure
Family History
Family History: Other ( sickle cell disease)
Allergies / Home Medications
Allergies
Allergy/AdvReac Type Severity Reaction Status Date / Time
fentanyl Allergy Delirium, Verified 08/24/24 07:40
Hallucinations
hydromorphone [From Dilaudid] Allergy Delirium, Verified 08/24/24 07:40
Hallucinations
morphine Allergy Delirium, Verified 07/25/24 10:19
hallucinations
Sulfa (Sulfonamide Allergy Unknown Verified 08/24/24 07:40
Antibiotics)
Home Medications
�Medication �Instructions �Recorded �Confirmed �Last Taken �Type
albuterol sulfate 90 mcg/actuation 2 puff inhalation Q6H PRN COPD 11/23/23 08/24/24 08/22/24 History
aerosol inhaler
ascorbic acid (vitamin C) 500 mg 500 mg PO DAILY 11/23/23 08/24/24 08/17/24 History
tablet (Vitamin C)
aspirin 81 mg tablet,delayed 81 mg PO DAILY 11/23/23 08/24/24 08/17/24 History
release
budesonide 160 mcg-glycopyr 9 2 inh inhalation BID 11/23/23 08/24/24 08/17/24 History
mcg-formot 4.8 mcg/actuation HFA
inhaler (Breztri Aerosphere)
fluticasone propionate 50 2 spray intranasal DAILY 11/23/23 08/24/24 08/17/24 History
mcg/actuation nasal
spray,suspension
folic acid 1 mg tablet 1 mg PO DAILY 11/23/23 08/24/24 08/17/24 History
hydroxychloroquine 200 mg tablet 200 mg PO BID 11/23/23 08/24/24 08/21/24 History
(Plaquenil)
mecobalamin (vitamin B12) 1,000 1,000 mcg PO DAILY 11/23/23 08/24/24 08/17/24 History
mcg chewable tablet
multivitamin 1 tab PO DAILY 11/23/23 08/24/24 08/17/24 History
omeprazole magnesium 20 mg 20 - 40 mg PO DAILY 11/23/23 08/24/24 08/17/24 History
tablet,delayed release (Prilosec
OTC)
oxybutynin chloride 10 mg 10 mg PO DAILY 11/23/23 08/24/24 08/17/24 History
tablet,extended release 24 hr
oxycodone 10 mg tablet,crush 10 mg PO BID 11/23/23 08/24/24 08/23/24 22:00 History
resistant,extended release 12 hr
(OxyContin)
lcsamksznw-lwkojnzafvaig-bpabkpxl 1 tab PO PRN PRN Migraines 07/25/24 08/24/24 Unknown History
50 mg-325 mg-40 mg tablet
cholecalciferol (vitamin D3) 50 50 mcg PO DAILY 07/25/24 08/24/24 08/17/24 History
mcg (2,000 unit) capsule (Vitamin
D3)
docusate sodium 100 mg capsule 100 mg PO BID 07/25/24 08/24/24 08/17/24 History
(Colace)
tirzepatide (weight loss) 10 10 mg SC MO 07/25/24 08/24/24 08/13/24 History
mg/0.5 mL subcutaneous pen
injector (Zepbound)
mupirocin 2 % topical ointment 1 applic topical BID infection 07/26/24 Unknown Rx
prevention #1 tube
Saccharomyces boulardii 250 mg 250 mg PO BID #1 cap 08/24/24 Unknown Rx
capsule (Florastor)
doxycycline hyclate 100 mg capsule 100 mg PO BID infection prevention 08/24/24 Unknown Rx
#10 caps
magnesium hydroxide 400 mg/5 mL 30 ml PO HS PRN constipation #1 mL 08/24/24 Unknown Rx
oral suspension (Milk of Magnesia)
oxycodone 15 mg tablet 15 mg PO QID PRN moderate-severe 08/24/24 08/24/24 08/22/24 Rx
pain #0 tabs
ramipril 10 mg capsule 20 mg (2 x 10 mg) PO DAILY #0 caps 08/24/24 08/24/24 08/23/24 09:00 Rx
rivaroxaban 10 mg tablet (Xarelto) 10 mg PO DAILY Blood clot 08/24/24 Unknown Rx
prevention/tx #90 tabs
sennosides 8.6 mg tablet (Senokot) 17.2 mg (2 x 8.6 mg) PO BID 08/24/24 Unknown Rx
laxative #2 tabs
tamsulosin 0.4 mg capsule 0.4 mg PO DAILY #0 caps 08/24/24 08/24/24 08/17/24 Rx
Review of Systems
-
Unable to Obtain full review of systems at this time due to: Other ( per HPI)
Vitals / Labs / Diagnostic Testing
Vital Signs
Temp Pulse Resp BP Pulse Ox
98.0 F 67 16 161/76 97
08/26/24 11:14 08/26/24 11:14 08/26/24 11:14 08/26/24 11:14 08/26/24 11:14
Lab Data
08/26/24 10:23
08/25/24 12:24
Diagnostic Testing:
Physical Exam
-
Exam:
well-nourished and well-developed in no apparent distress
HEENT-atraumatic, normocephalic
Neck-supple, no JVD, no bruit
Heart-regular rate and rhythm-no murmurs, rubs or gallops
Chest-clear to auscultation, no wheezes, crackles
Back-no tenderness
Abdomen-soft, nontender, nondistended, no hepatosplenomegaly
Extremities-no cyanosis, clubbing, edema and good peripheral pulses
Integument-intact, no rashes, lesions or ecchymosis
Neurology-alert and oriented, nonfocal motor and sensory exam
Assessment
-
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
sickle cell crisis-nutritionist public health consulted for sickle cell crisis/pain management/critical care management 08/26/2024.
Sickle cell rpdezl-gjsp-trhuayycv crisis
Status post left shoulder hemiarthroplasty
Leukocytosis
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
Hyperglycemia
Conditions present prior to admission:
Sickle cell disease.
Avascular necrosis.
BPH.
COPD/Asthma-Followed by stone polisher machine in [place]-maintained on Breztri and albuterol as needed-has home oxygen as needed for sickle cell not lung disease
Hypertension.
Migraines.
DIAZ resolved with weight loss.
Rheumatoid arthritis.
Spinal stenosis.
Recurrent DVT on chronic anticoagulation.
Appendectomy. Cholecystectomy. Small bowel obstruction/resection.. Bi hip arthroplasty.
Plan
Patient will be transferred to medical intensive care unit for sickle cell crisis
Supplemental oxygen as needed
Continue DuoNebs twice daily as well as Symbicort-at home he is on albuterol and Breztri
Mucolytic's if needed
Incentive spirometry
Aspiration precautions
Mucus clearing devices if needed
Sickle cell crisis treated with analgesia
Demerol was working, however, hospital supply is extremely low and need to try other opiates
He has tried many in the past without success-has used fentanyl patches in the past with marginal success
Try fentanyl intravenous as needed-monitor closely in the ICU and avoid oversedation
Intravenous fluid hydration
Oxygen
Never been on hydroxyurea-this can be discussed by gas appliance repairer in the outpatient setting
Ketamine drip -3 to 5 mcg/kg/min (0.3 mg/kg/h) can be used if opiates are not working
Transfusion if crisis cannot be otherwise managed
Check lower extremity ultrasound-history of recurrent DVT-unlikely as patient has been on Xarelto
Continue anticoagulation-Xarelto
Monitor temperature curve
Culture if spikes temperature
Follow leukocytosis
Also carries a diagnosis of rheumatoid arthritis
Plaquenil continues
DVT prophylaxis-on Xarelto
Nutrition
Physical therapy
Outpatient follow-up with his stone polisher machine-in [place]
Outpatient follow-up with his gas appliance repairer-in [place]
Critical care statement: A total of 65 minutes of critical care time was provided for this patient today. This includes management of unstable vital signs, evaluation of the patient at bedside, reviewing the patient's pertinent medical records
including radiographs, microbiology, laboratory evaluations, and discussion with primary team, consultants, pharmacy, nutrition, physical therapy, case management, charge nurse, critical care nursing, and respiratory therapy.
Diagnostic data:
Data Reviewed
-
EKG: Report reviewed by me
Radiology: Report reviewed by me
Medical Tests (Nuc Med, Echo etc): Report reviewed by me
Labs: Labs reviewed by me
Old Records: Reviewed
Critical Care Time (in minutes): 65
[2024-08-26] MEDS: DULCOLAX 10 MG RECTAL (14:42)
--- NOTE | 2024-08-26 16:40 | PTCARENOTE ---
Pt for Transfer to ICU, verbal report called to Ngozi TAMEZ. Pt aware and agreeable with the transfer. Pt's VSS, Pt is afebrile. Will medicate for pain prior to the transfer as ordered.
[2024-08-26] MEDS: XARELTO 10 MG PO (17:47)
--- NOTE | 2024-08-26 17:57 | PTCARENOTE ---
Rec'd patient from 2S in wheelchair. Patient assisted to recliner chair. AAOx3. Drowsy. NSR on tele. Rate in the 60's. Trace edema in b/l LE. LUE neurovascular check wnl. Palpable pulses. Wiggling fingers. Normal sensation. LUE in sling. Dressing
c/d/i. Pulse ox 97% on 2L nc. Placed on ETCO2 monitoring. Lung sounds diminished throughout. +BS. Tolerating regular diet. Urinal provided for voiding needs. IVFs infusing through R midline. VSS. Call metz within reach.
[2024-08-26] MEDS: SUBLIMAZE 50 MCG IV ×3 (19:06→22:16)
--- NOTE | 2024-08-26 20:00 | PTCARENOTE ---
On assessment pt AAOx3, denies chest pain and SOB, but c/o B/L leg and arm discomfort, pain meds reviewed with pt, Neurovascular check WNL see flowsheet, SR on the monitor, 2L NC, reg diet, uses the urinal, L shoulder dressing C/D/I, sling in place,
PRN FEN given per orders, R midline, NS running at 75ml/hr, call metz in reach and family at bedside.
[2024-08-26] MEDS: MILK OF MAGNESIA 30 ML PO (22:20)
[2024-08-26] MEDS: SUBLIMAZE 100 MCG IV (23:15)
[2024-08-27] VITALS (25 sets, daily range): BP systolic 119–164; BP diastolic 71–104; PULSE 69–78; O2SAT 98; BMI 33.8
--- NOTE | 2024-08-27 | PTCARENOTE ---
pt continued with increased pain, PROGRAMS MANAGER made aware and PRN dose was adjusted, see MAR
[2024-08-27] MEDS: TYLENOL 650 MG PO ×6 (00:32→20:16)
[2024-08-27] MEDS: SUBLIMAZE 100 MCG IV ×7 (03:18→22:20)
[2024-08-27 03:25] LABS: % Basophils 0.4 % (0-2); % Eosinophils 2.7 % (0-6); % Immature Granulocytes 0.2 % (0-0.5); % Lymphocytes 25.1 % (20.5-51.1); % Neutrophils 59.6 % (42.2-75.2); Absolute Basophils 0.1 10^3/uL (0-0.2); Absolute Eosinophils 0.4 10^3/uL (0-0.7); Absolute Lymphocytes 3.5 10^3/uL (1.2-3.4); Absolute Monocytes 1.7 10^3/uL (0.1-0.6); Absolute Neutrophils 8.3 10^3/uL (1.4-6.5); Hematocrit 26.1 % (39.0-52.0); Hemoglobin 9.5 g/dL (13.0-18.0); Mean Corp Hgb Conc. 36.4 g/dL (33.0-37.0); Mean Corpuscular Hgb 29.7 pg (27.0-31.0); Mean Corpuscular Volume 81.6 fL (80.0-94.0); Mean Platelet Volume 10.7 fL (7.4-10.4); Nucleated Red Blood Cells % 1.2 % (-); Platelet Count 190 10^3/uL (130-400); Red Cell Dist. Width 14.2 % (11.5-14.5); Reticulocyte Count 3.3 % (0.4-2.8); White Blood Cell Count 13.9 10^3/uL (4.8-10.8)
[2024-08-27] MEDS: NSS 1000 IV ×2 (03:27→17:22)
[2024-08-27 03:39] LABS: PT 16.5 Sec (11.4-14.6)
[2024-08-27 03:40] LABS: APTT 33.2 Sec (23.4-35.0)
[2024-08-27 03:52] LABS: ALT (SGPT) 22 U/L (0-50); AST (SGOT) 24 U/L (17-59); Albumin 3.1 g/dl (3.5-5.0); Alkaline Phosphatase 74 U/L (38-126); Blood Urea Nitrogen 17 mg/dl (9-20); Calcium 8.3 mg/dl (8.4-10.2); Carbon Dioxide 29 mmol/L (22-30); Chloride 111 mmol/L (98-107); Direct Bilirubin 0.2 mg/dl (0.0-0.4); Estimated Creatinine Clearance 84 ml/min; Glucose 94 mg/dl (70-99); LDH 241 U/L (120-246); Magnesium 2.2 mg/dl (1.6-2.3); Phosphorus 3.6 mg/dl (2.5-4.5); Potassium 4.2 mmol/L (3.5-5.1); Sodium 145 mmol/L (135-145); Total Bilirubin 0.7 mg/dl (0.2-1.3); Total Protein 5.8 g/dl (6.3-8.2); eGFR > 60.00
--- NOTE | 2024-08-27 05:44 | PTCARENOTE ---
pt states pain 10/04, improved since last night but still uncomfortable at times, call metz in reach
[2024-08-27] MEDS: DUONEB 3 ML INH ×2 (07:44→20:13)
[2024-08-27] MEDS: SYMBICORT 160/4.5 MCG INHALER 2 PUFF INH ×2 (07:44→20:13)
--- NOTE | 2024-08-27 08:16 | W.PN.INTV ---
Today's Communication / Plan
Recommendations
Pain control
Supplemental oxygen
IVF
Discussion as an outpatient about starting hydroxyurea
Continue Symbicort + DuoNebs
Rinse mouth after Symbicort to avoid thrush
Continue with close monitoring given IV fentanyl use prn
Monitor for any development of chest pain as this could indicate impending acute chest syndrome
Continue ICU level care for this critically ill patient
Assessment
-
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
Sickle cell [id number]-dmaitfhqa crisis
Status post left shoulder hemiarthroplasty
Leukocytosis
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
Hyperglycemia
Conditions present prior to admission:
Sickle cell disease.
Avascular necrosis.
BPH.
COPD/Asthma-Followed by devil tender in [place]-maintained on Breztri and albuterol as needed-has home oxygen as needed for sickle cell not lung disease
Hypertension.
Migraines.
DIAZ resolved with weight loss.
Rheumatoid arthritis.
Spinal stenosis.
Recurrent DVT on chronic anticoagulation.
Appendectomy. Cholecystectomy. Small bowel obstruction/resection.. Bi hip arthroplasty.
Plan
Patient transferred to medical intensive care unit for sickle cell crisis
Continue supplemental oxygen and wean as tolerated while maintaining SpO2 >90-94%
Continue DuoNebs twice daily as well as Symbicort 160 mcg-at home he is on albuterol and Breztri
Mucolytic's if needed
Incentive spirometry
Aspiration precautions
Mucus clearing devices if needed
Sickle cell crisis treated with analgesia
Demerol was working, however, hospital supply is extremely low and need to try other opiates
He has tried many in the past without success-has used fentanyl patches in the past with marginal success
Try fentanyl intravenous as needed-monitor closely in the ICU and avoid oversedation
Intravenous fluid hydration
Oxygen
Never been on hydroxyurea-this can be discussed by closing coordinator in the outpatient setting
Ketamine drip -3 to 5 mcg/kg/min (0.3 mg/kg/h) can be used if opiates are not working
Transfusion if crisis cannot be otherwise managed
Lower extremity ultrasound negative for DVT on 08/26/2024; he has Hx of recurrent DVT-unlikely as patient has been on Xarelto
Continue anticoagulation-Xarelto
Monitor temperature curve
Culture if spikes temperature
No obvious consolidation on CXR from today (08/27)
Follow leukocytosis
Also carries a diagnosis of rheumatoid arthritis
Plaquenil continues
DVT prophylaxis-on Xarelto
Nutrition
Physical therapy
Outpatient follow-up with his devil tender-in [place]
Outpatient follow-up with his closing coordinator-in [place]
Critical care statement: A total of 38 minutes of critical care time was provided for this patient today. This includes management of unstable vital signs, evaluation of the patient at bedside, reviewing the patient's pertinent medical records
including radiographs, microbiology, laboratory evaluations, and discussion with primary team, consultants, pharmacy, nutrition, physical therapy, case management, charge nurse, critical care nursing, and respiratory therapy.
Subjective Dataa
Subjective Data
Date of Service:
Date of Service: August 27, 2024
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
Subjective:
Patient seen this morning, sitting in chair no acute distress. Currently on 2 L/min saturating 96%, heart rate 67 and BP 127/78. Still has bone pain/pain in his legs, arms and back. Currently on normal saline at 75 cc/hr. He denies chest pain.
ETCO2: 41. Per the RN, he has moments throughout the day where he is very lethargic. He currently denies DIXON, nausea, vomiting, fevers or chills or abdominal pain/chest pain.
Review of Systems
General: Other (Negative unless mentioned above)
Objective Data
Data Reviewed
Vital Signs / I&O / Oxygen:
Vital Signs
Temp Pulse Resp BP Pulse Ox
98.7 F 72 19 150/89 99
08/27/24 07:00 08/27/24 10:15 08/27/24 10:15 08/27/24 10:00 08/27/24 10:15
Intake and Output
08/26/24 08/27/24 08/28/24
06:59 06:59 06:59
Intake Total 4780 / 4780 2265 / 2340 1260 / 1260
Output Total 1400 / 1400 2500 / 2500 800 / 800
Balance 3380 / 3380 -235 / -160 460 / 460
SaO2 99
Nasal Cannula flow liters per 2
minute
Physical Exam
General: Respiratory Distress (negative), Comfortable, Pain (Legs, arms and back), Chills (negative) and Sweats (negative)
HEENT: Normocephalic and Anicteric
Cardiovascular: S1-S2, Regular Rhythm and Peripheral Edema (negative)
Respiratory: Wheeze (negative), Crackles (negative), Rhonchi (negative) and Non-Labored Respirations
GI: Soft, Distended (Abdominal obesity), Non Tender and Normal Bowel Sounds
Neurology: AO x 3 and Tremors (negative)
Skin: Warm, Dry, Cyanosis (negative) and Jaundice (negative)
Labs/Micro/Reports
Lab Data
08/27/24 03:05
08/27/24 03:05
Laboratory Results
08/27/24
03:05
PT 16.5 H
INR 1.30
APTT 33.2
[2024-08-27] MEDS: ALTACE 20 MG PO (08:21)
[2024-08-27] MEDS: VITAMIN B-12 1000 MCG PO (08:21)
[2024-08-27] MEDS: VITAMIN C 500 MG PO (08:21)
[2024-08-27] MEDS: FOLVITE 1 MG PO (08:21)
[2024-08-27] MEDS: DITROPAN 5 MG PO ×2 (08:22→20:16)
[2024-08-27] MEDS: PLAQUENIL 200 MG PO ×2 (08:22→20:16)
[2024-08-27] MEDS: THERAGRAN 1 TABLET PO (08:22)
[2024-08-27] MEDS: OXYCONTIN (CONTROLLED RELEASE) 15 MG PO ×2 (08:22→20:16)
[2024-08-27] MEDS: ASPIR LOW (ENTERIC COATED) 81 MG PO (08:22)
[2024-08-27] MEDS: PROTONIX 40 MG PO (08:22)
[2024-08-27] MEDS: LYRICA 75 MG PO ×3 (08:22→22:16)
[2024-08-27] MEDS: COLACE 100 MG PO ×2 (08:22→20:16)
[2024-08-27] MEDS: VITAMIN D3 (cholecalciferol) 50 MCG PO (08:22)
[2024-08-27] MEDS: SENOKOT 17.2 MG PO ×2 (08:23→20:16)
--- NOTE | 2024-08-27 08:45 | PTCARENOTE ---
Rec'd care of patient at 0700. Patient alert and oriented. Drowsy at times. ETCO2 monitoring maintained, ranging high 30-low 40's. VSS. NSR on tele. Pulse ox 98-100% on 2L nc. Lung sounds shallow/diminished throughout. +BS. Appetite good. Voiding
via urinal. LUE in sling. Neurovascular checks wnl. Dressing c/d/i. Assisted oob to chair at 0830.
--- NOTE | 2024-08-27 09:04 | W.PN.UPDATE ---
Update Note
Progress Note Update
Patient seen this morning reportedly doing well. Reports mild return of shoulder pain since his block wore off but well-tolerated. Currently in sling. Dressing is dry without drainage or surrounding erythema. He is neuro vas intact C5-T1.
Appreciate assistance care of patient with all involved regarding sickle cell crisis
PT/OT consultation on board
Orthopedic surgery will continue to follow
[2024-08-27] MEDS: NSS (PRESERVATIVE FREE) 0.5 ML IV ×2 (09:41→20:16)
[2024-08-27] MEDS: ATIVAN 1 MG IV ×2 (09:41→20:15)
--- NOTE | 2024-08-27 12:30 | PTCARENOTE ---
No major changes in assessment. Patient ambulated to bathroom with supervision. +BM. Requesting to get back to bed. Tolerated 4 hours in chair. VSS. Pain better controlled with PRN Fentanyl.
--- NOTE | 2024-08-27 12:36 | W.PN.ONC ---
Today's Communication / Plan
-
pain better controlled
cont current analgesia
follow CBC and hemolytic parameters
Impression
Impression
Sickle cell disease
s/p Left shoulder hemiarthroplasty 08/24/2024
post operative pain
opioid tolerance/dependence
on chronic DOAC for hx VTE
Plan
Plan
1. Sickle cell disease
-now w/ component of pain secondary to sickle cell crisis
-pain improved w/ current analgesia
-CBC demonstrated mild anemia w/ chronic low grade hemolysis
-follow CBC and reticulocyte count
-IVF/ oxygen support
-pt has outpt policy service coordinator -Dr. Vandana Castañeda at [place] - with whom he has followed for years
Subjective/Objective
Subjective/Objective
feels better, less pain
Vital Signs:
Vital Signs
Temp Pulse Resp BP Pulse Ox
98.6 F 62 16 127/78 98
08/27/24 11:00 08/27/24 12:12 08/27/24 12:12 08/27/24 12:12 08/27/24 12:12
Lab Results:
Laboratory Data
WBC 13.9 10^3/uL (4.8-10.8) H 08/27/24 03:05
Hgb 9.5 g/dL (13.0-18.0) L 08/27/24 03:05
Plt Count 190 10^3/uL (130-400) 08/27/24 03:05
PT 16.5 Sec (11.4-14.6) H 08/27/24 03:05
INR 1.30 08/27/24 03:05
APTT 33.2 Sec (23.4-35.0) 08/27/24 03:05
eGFR > 60.00 08/27/24 03:05
Exam: unchanged
[2024-08-27] MEDS: ZOFRAN 4 MG IV (14:57)
--- NOTE | 2024-08-27 16:33 | PTCARENOTE ---
No changes. Patient resting comfortably in bed. VSS.
[2024-08-27] MEDS: XARELTO 10 MG PO (17:22)
--- NOTE | 2024-08-27 17:34 | W.PN.HOSP.TC ---
Today's Communication/Plan
-
pain control, oxygen supplement, IVF
follow HGB
Assessment / Plan
Assessment / Plan
s/p left shoulder arthroplasty performed for avascular necrosis
post operative pain
allergy to Dilaudid, Morphine and Sulfa
Hx of Sickle Cell Anemia
with pt believing he is going into a sickle cell crisis. He felt only Demerol could he take and only Demerol would control his pain. Decision was was to transfer to ICU and use Fentanyl IV boluses for pain control. This is current;ly working
and he is feeling much improved
Hgb 9.5
GERD
Hypertension with elevated BP
BP remains very variable, most likely associated with degree of pain. Will continue current Altace 20 mg daily, if BP improves will continue this dose, but if starts to rise, consider addition of 2nd agent
Pain management
Pt accepted onto our service following transfer to ICU
dc pending once pain controlled
Anticipated Discharge: 24 - 48 hours
Subjective/Interval History
-
Date of Service: August 27, 2024
Feels much better today
Objective Data
-
Vital Signs:
Vital Signs
Temp Pulse Resp BP Pulse Ox
98.6 F 64 17 160/97 97
08/27/24 15:47 08/27/24 16:00 08/27/24 16:00 08/27/24 16:00 08/27/24 16:00
I&O
08/26/24 08/27/24 08/28/24
06:59 06:59 06:59
Intake Total 4780 / 4780 2265 / 2340 2265 / 2265
Output Total 1400 / 1400 2500 / 2500 1974 / 1974
Balance 3380 / 3380 -235 / -160 290 / 290
Review of Systems
-
History Source: Patient and Coordinated Provider
Constitutional: Denies Fever
EENT: Reports No Symptoms Reported
Respiratory: Reports No Symptoms; Denies Trouble Breathing
Cardiac: Reports No Symptoms; Denies Chest Pain
Abdomen/GI: Reports No Symptoms; Denies Abdominal Pain or Anorexia (good appetite)
Genitourinary: Reports No Symptoms
Musculoskeletal: Reports Joint Pain, Muscle Pain, Arthralgias and Myalgias
Neuro: Denies Dizzy
Physical Exam
-
General: Well Developed, Well Nourished and No Apparent Distress (though asking for pain meds)
HEENT: Normocephalic, Atraumatic and Moist Mucous Membranes
Respiratory: Clear to Auscultation; Negative Wheezes, Rales or Rhonchi
Cardiac: Regular Rhythm and S1/S2
GI: Soft, Nontender and Nondistended
Musculoskeletal: No Clubbing, No Cyanosis and No Edema
Skin: Warm and Dry
Neuro: Awake, Alert and Oriented
Psych: Calm
--- NOTE | 2024-08-27 20:23 | PTCARENOTE ---
On assessment pt AAOx3, denies chest pain and SOB, but c/o B/L leg and arm discomfort, pain meds reviewed with pt, Neurovascular check WNL see flowsheet, SR on the monitor, 2L NC, reg diet, uses the urinal, L shoulder dressing C/D/I, sling in place,
PRN FEN given per orders, R midline, NS running at 75ml/hr, call metz in reach
[2024-08-27] MEDS: MILK OF MAGNESIA 30 ML PO (22:16)
[2024-08-28] VITALS (25 sets, daily range): BP systolic 111–165; BP diastolic 66–105; PULSE 63; O2SAT 98; BMI 34.8
[2024-08-28] MEDS: TYLENOL PO
[2024-08-28] MEDS: SUBLIMAZE 100 MCG IV ×3 (01:35→15:23)
--- NOTE | 2024-08-28 03:24 | PTCARENOTE ---
no changes from prior assessment, PRN meds given see JUN, call metz in reach
[2024-08-28] MEDS: ZOFRAN 4 MG IV ×2 (03:36→15:14)
[2024-08-28] MEDS: TYLENOL 650 MG PO ×5 (03:36→19:21)
[2024-08-28] MEDS: NSS 1000 IV ×2 (03:49→16:26)
[2024-08-28 04:43] LABS: ALT (SGPT) 28 U/L (0-50); AST (SGOT) 28 U/L (17-59); Albumin 2.9 g/dl (3.5-5.0); Alkaline Phosphatase 80 U/L (38-126); Blood Urea Nitrogen 15 mg/dl (9-20); Calcium 8.5 mg/dl (8.4-10.2); Carbon Dioxide 32 mmol/L (22-30); Chloride 112 mmol/L (98-107); Direct Bilirubin 0.1 mg/dl (0.0-0.4); Estimated Creatinine Clearance 101 ml/min; Glucose 96 mg/dl (70-99); LDH 225 U/L (120-246); Potassium 4.3 mmol/L (3.5-5.1); Sodium 146 mmol/L (135-145); Total Bilirubin 0.6 mg/dl (0.2-1.3); Total Protein 5.6 g/dl (6.3-8.2); eGFR > 60.00
[2024-08-28 05:11] LABS: Hemoglobin 9.2 g/dL (13.0-18.0); Mean Corp Hgb Conc. 36.8 g/dL (33.0-37.0); Mean Corpuscular Hgb 29.8 pg (27.0-31.0); Mean Corpuscular Volume 80.9 fL (80.0-94.0); Mean Platelet Volume 11.2 fL (7.4-10.4); Platelet Count 199 10^3/uL (130-400); Red Blood Cell Count 3.09 10^6/uL (4.70-6.10); Red Cell Dist. Width 14.1 % (11.5-14.5); Reticulocyte Count 2.7 % (0.4-2.8); White Blood Cell Count 11.3 10^3/uL (4.8-10.8)
[2024-08-28 05:24] LABS: Haptoglobin 52 mg/dL (30-200)
[2024-08-28] MEDS: DUONEB 3 ML INH (07:35)
[2024-08-28] MEDS: SYMBICORT 160/4.5 MCG INHALER 2 PUFF INH (07:35)
--- NOTE | 2024-08-28 08:11 | W.PN.INTV ---
Today's Communication / Plan
Recommendations
Pain control
Supplemental oxygen
IVF
Discussion as an outpatient about starting hydroxyurea
Continue Symbicort + DuoNebs
Rinse mouth after Symbicort to avoid thrush
Continue with close monitoring given IV fentanyl use prn
Monitor for any development of chest pain as this could indicate impending acute chest syndrome
Continue ICU level care for this critically ill patient
Assessment
-
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
Sickle cell nmykqr-fqzv-fnltctxrj crisis
Status post left shoulder hemiarthroplasty
Leukocytosis
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
Hyperglycemia
Conditions present prior to admission:
Sickle cell disease.
Avascular necrosis.
BPH.
COPD/Asthma-Followed by third helper in [place]-maintained on Breztri and albuterol as needed-has home oxygen as needed for sickle cell not lung disease
Hypertension.
Migraines.
DIAZ resolved with weight loss.
Rheumatoid arthritis.
Spinal stenosis.
Recurrent DVT on chronic anticoagulation.
Appendectomy. Cholecystectomy. Small bowel obstruction/resection.. Bi hip arthroplasty.
Plan
Patient transferred to medical intensive care unit for sickle cell crisis
Continue supplemental oxygen and wean as tolerated while maintaining SpO2 >90-94%
Continue DuoNebs twice daily as well as Symbicort 160 mcg-at home he is on albuterol and Breztri
Mucolytics if needed
Incentive spirometry encouraged q1hr while awake
Aspiration precautions
Mucus clearing devices if needed
Sickle cell crisis treated with analgesia
Demerol was working, however, hospital supply is extremely low and need to try other opiates
He has tried many in the past without success-has used fentanyl patches in the past with marginal success
Try fentanyl intravenous as needed-monitor closely in the ICU and avoid oversedation
Intravenous fluid hydration
Oxygen
Never been on hydroxyurea-this can be discussed by sea shell gatherer in the outpatient setting
Ketamine drip -3 to 5 mcg/kg/min (0.3 mg/kg/h) can be used if opiates are not working or unable to be weaned off without rebound of pain
Transfusion if crisis cannot be otherwise managed
Lower extremity ultrasound negative for DVT on 08/26/2024; he has Hx of recurrent DVT-unlikely as patient has been on Xarelto
Continue anticoagulation-Xarelto
Monitor temperature curve
Culture if spikes temperature
No obvious consolidation on CXR from 08/27
Follow leukocytosis
Also carries a diagnosis of rheumatoid arthritis
Plaquenil continues
DVT prophylaxis-on Xarelto
Nutrition
Physical therapy
Outpatient follow-up with his third helper-in [place]
Outpatient follow-up with his sea shell gatherer-in [place]
Critical care statement: A total of 41 minutes of critical care time was provided for this patient today. This includes management of unstable vital signs, evaluation of the patient at bedside, reviewing the patient's pertinent medical records
including radiographs, microbiology, laboratory evaluations, and discussion with primary team, consultants, pharmacy, nutrition, physical therapy, case management, charge nurse, critical care nursing, and respiratory therapy.
Subjective Dataa
Subjective Data
Date of Service:
Date of Service: August 28, 2024
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
Subjective:
Patient seen this morning. Resting in bed no acute distress. BP 135/77, heart rate 61, saturating 100% on 2 L per nasal cannula. End-tidal CO2 32. Still has pain in his legs and arms, but denies SOB, DIXON, fevers or chills.
Review of Systems
General: Other (Negative unless mentioned above)
Objective Data
Data Reviewed
Vital Signs / I&O / Oxygen:
Vital Signs
Temp Pulse Resp BP Pulse Ox
98.7 F 67 13 140/79 99
08/28/24 07:19 08/28/24 09:00 08/28/24 09:00 08/28/24 09:00 08/28/24 09:00
Intake and Output
08/27/24 08/28/24 08/29/24
06:59 06:59 06:59
Intake Total 2265 / 2340 3555 / 3630 225 / 225
Output Total 2500 / 2500 3095 / 3095 375 / 375
Balance -235 / -160 460 / 535 -150 / -150
SaO2 99
Nasal Cannula flow liters per 2
minute
Physical Exam
General: Respiratory Distress (negative), Comfortable, Pain (Legs, arms and back), Chills (negative) and Sweats (negative)
HEENT: Normocephalic and Anicteric
Cardiovascular: S1-S2, Regular Rhythm and Peripheral Edema (negative)
Respiratory: Clear, Wheeze (negative), Crackles (negative), Rhonchi (negative) and Non-Labored Respirations
GI: Soft, Distended (Abdominal obesity), Non Tender and Normal Bowel Sounds
Neurology: Tremors (negative) and Other (Drowsy today)
Skin: Warm, Dry, Cyanosis (negative) and Jaundice (negative)
Labs/Micro/Reports
Lab Data
08/28/24 03:47
08/28/24 03:47
[2024-08-28] MEDS: ATIVAN 1 MG IV ×2 (08:37→19:20)
[2024-08-28] MEDS: NSS (PRESERVATIVE FREE) 0.5 ML IV ×2 (08:37→19:21)
[2024-08-28] MEDS: ASPIR LOW (ENTERIC COATED) 81 MG PO (08:38)
[2024-08-28] MEDS: FOLVITE 1 MG PO (08:38)
[2024-08-28] MEDS: LYRICA 75 MG PO ×3 (08:38→21:25)
[2024-08-28] MEDS: PROTONIX 40 MG PO (08:38)
[2024-08-28] MEDS: ALTACE 20 MG PO (08:38)
[2024-08-28] MEDS: DITROPAN 5 MG PO ×2 (08:38→19:21)
[2024-08-28] MEDS: VITAMIN B-12 1000 MCG PO (08:38)
[2024-08-28] MEDS: COLACE 100 MG PO ×2 (08:38→19:21)
[2024-08-28] MEDS: THERAGRAN 1 TABLET PO (08:38)
[2024-08-28] MEDS: SENOKOT 17.2 MG PO ×2 (08:38→19:21)
[2024-08-28] MEDS: VITAMIN D3 (cholecalciferol) 50 MCG PO (08:38)
[2024-08-28] MEDS: PLAQUENIL 200 MG PO ×2 (08:39→19:21)
[2024-08-28] MEDS: OXYCONTIN (CONTROLLED RELEASE) 15 MG PO ×2 (08:39→19:21)
[2024-08-28] MEDS: VITAMIN C 500 MG PO (08:39)
--- NOTE | 2024-08-28 08:45 | PTCARENOTE ---
Rec'd care of patient at 0700. Patient drowsy. Easily arousable. Oriented. SB/NSR on tele. Rate in the 50-60's. Pulse ox 99% on 2L nc. ETCO2 maintained. +BS. Refused breakfast. Voiding via urinal. Left shoulder dressing c/d/i. Neurovascular check
wnl. Pain controlled at current time.
--- NOTE | 2024-08-28 09:07 | W.PN.UPDATE ---
Update Note
Progress Note Update
Patient seen this morning, doing well other than generalized pain somewhat increased today. Reports mild shoulder pain. Currently in sling. Dressing is dry without drainage or surrounding erythema. He is neuro vas intact C5-T1.
Appreciate assistance care of patient with all involved regarding sickle cell crisis
PT/OT consultation on board
Can take periodic breaks from sling while resting in bed for comfort and hygiene as needed. Sling while OOB.
Orthopedic surgery will continue to follow
--- NOTE | 2024-08-28 11:07 | W.PN.HOSP.TC ---
Today's Communication/Plan
-
continue current Tx
Assessment / Plan
Assessment / Plan
s/p left shoulder arthroplasty performed for avascular necrosis
post operative pain
allergy to Dilaudid, Morphine and Sulfa
Hx of Sickle Cell Anemia
with pt believing he is going into a sickle cell crisis. He felt only Demerol could he take and only Demerol would control his pain. Decision was was to transfer to ICU and use Fentanyl IV boluses for pain control. This is currently working
and he is feeling much improved
Hgb 9.5-->9.[address] 3.3-->2.7
GERD
Hypertension control has improved
130's/70's
Pain management
Pt accepted onto our service following transfer to ICU
dc pending once pain controlled
Anticipated Discharge: 24 - 48 hours
Subjective/Interval History
-
Date of Service: August 28, 2024
Pt told me that pain is generally better, but not resolved
Objective Data
-
Labs:
Laboratory Results
08/28/24
03:47
WBC 11.3 H
Hgb 9.2 L
Hct 25.0 L
Plt Count 199
Sodium 146 H
Potassium 4.3
Chloride 112 H
Carbon Dioxide 32 H
BUN 15
Creatinine 0.9
Glucose 96
Calcium 8.5
Total Bilirubin 0.6
AST 28
ALT 28
Alkaline Phosphatase 80
Vital Signs:
Vital Signs
Temp Pulse Resp BP Pulse Ox
98.7 F 60 12 135/77 100
08/28/24 07:19 08/28/24 11:00 08/28/24 11:00 08/28/24 11:00 08/28/24 11:00
I&O
08/27/24 08/28/24 08/29/24
06:59 06:59 06:59
Intake Total 2265 / 2340 3555 / 3630 375 / 375
Output Total 2500 / 2500 3095 / 3095 375 / 375
Balance -235 / -160 460 / 535 0 / 0
Review of Systems
-
History Source: Patient and Coordinated Provider
Constitutional: Denies Fever
EENT: Reports No Symptoms Reported
Respiratory: Reports No Symptoms; Denies Trouble Breathing
Cardiac: Reports No Symptoms; Denies Chest Pain
Abdomen/GI: Reports No Symptoms; Denies Abdominal Pain or Anorexia (good appetite)
Genitourinary: Reports No Symptoms
Musculoskeletal: Reports Joint Pain, Muscle Pain, Arthralgias and Myalgias
Neuro: Denies Dizzy
Physical Exam
-
General: Well Developed, Well Nourished and No Apparent Distress (appears more comfortable)
HEENT: Normocephalic, Atraumatic and Moist Mucous Membranes
Respiratory: Clear to Auscultation; Negative Wheezes, Rales or Rhonchi
Cardiac: Regular Rhythm and S1/S2
GI: Soft, Nontender and Nondistended
Musculoskeletal: No Clubbing, No Cyanosis and No Edema
Skin: Warm and Dry
Neuro: Awake, Alert and Oriented
Psych: Calm
[2024-08-28] MEDS: ROXICODONE 15 MG PO (12:26)
--- NOTE | 2024-08-28 12:30 | PTCARENOTE ---
PT at bedside. Patient ambulatory in room. OOB in chair following PT. VSS. C/o 09/03 sickle cell pain. Patient requesting alternative to Fentanyl. PRN Ana and scheduled Tylenol administered. No other changes.
--- NOTE | 2024-08-28 16:53 | PTCARENOTE ---
Patient back in bed. Tolerated about 2.5 hours in chair. Pain increasing. Patient agreeable to PRN dose of Fentanyl. No other changes.
[2024-08-28] MEDS: XARELTO 10 MG PO (18:40)
[2024-08-28] MEDS: SYMBICORT 160/4.5 MCG INHALER INH (20:33)
[2024-08-28] MEDS: DUONEB INH (20:33)
[2024-08-28] MEDS: MILK OF MAGNESIA 30 ML PO (21:25)
[2024-08-29] VITALS (25 sets, daily range): BP systolic 111–169; BP diastolic 69–110; PULSE 86–88; O2SAT 97–98; BMI 35.2
--- NOTE | 2024-08-29 | PTCARENOTE ---
no changes from prior assessment, call metz in reach
[2024-08-29] MEDS: SUBLIMAZE 100 MCG IV ×7 (00:54→23:00)
[2024-08-29] MEDS: TYLENOL 650 MG PO ×6 (00:56→19:32)
--- NOTE | 2024-08-29 03:35 | PTCARENOTE ---
PRN meds given x1 see JUN, call metz in reach
[2024-08-29] MEDS: NSS 1000 IV ×2 (03:54→19:38)
[2024-08-29 04:20] LABS: ALT (SGPT) 28 U/L (0-50); AST (SGOT) 24 U/L (17-59); Albumin 2.9 g/dl (3.5-5.0); Alkaline Phosphatase 85 U/L (38-126); Direct Bilirubin 0.2 mg/dl (0.0-0.4); LDH 213 U/L (120-246); Total Bilirubin 0.7 mg/dl (0.2-1.3); Total Protein 5.5 g/dl (6.3-8.2)
[2024-08-29 04:29] LABS: Hematocrit 25.8 % (39.0-52.0); Hemoglobin 9.5 g/dL (13.0-18.0); Mean Corp Hgb Conc. 36.8 g/dL (33.0-37.0); Mean Corpuscular Hgb 30.2 pg (27.0-31.0); Mean Corpuscular Volume 81.9 fL (80.0-94.0); Mean Platelet Volume 10.9 fL (7.4-10.4); Platelet Count 210 10^3/uL (130-400); Red Blood Cell Count 3.15 10^6/uL (4.70-6.10); Red Cell Dist. Width 14.2 % (11.5-14.5); Reticulocyte Count 2.7 % (0.4-2.8); White Blood Cell Count 12.4 10^3/uL (4.8-10.8)
[2024-08-29] MEDS: SYMBICORT 160/4.5 MCG INHALER 2 PUFF INH ×2 (07:43→20:55)
[2024-08-29] MEDS: DUONEB 3 ML INH ×2 (07:43→20:55)
[2024-08-29] MEDS: PROTONIX 40 MG PO (08:00)
[2024-08-29] MEDS: PLAQUENIL 200 MG PO ×2 (08:00→19:33)
[2024-08-29] MEDS: OXYCONTIN (CONTROLLED RELEASE) 15 MG PO ×2 (08:00→19:33)
[2024-08-29] MEDS: ALTACE 20 MG PO (08:00)
--- NOTE | 2024-08-29 08:00 | PTCARENOTE ---
recd pt handoff at bedside, walking rounds. shoulder immobilizer maintained, CMS to L hand pink warm and dry. no numbness. verbalizing re: pain regimen, questions answered, meds as noted, requested and received fentanyl at change of shift
earlier, some relief. prefers IV fluids to remain along with oxygen to treat his SCD.
[2024-08-29] MEDS: COLACE 100 MG PO ×2 (08:01→19:32)
[2024-08-29] MEDS: VITAMIN C 500 MG PO (08:01)
[2024-08-29] MEDS: VITAMIN D3 (cholecalciferol) 50 MCG PO (08:01)
[2024-08-29] MEDS: SENOKOT 17.2 MG PO ×2 (08:01→19:33)
[2024-08-29] MEDS: THERAGRAN 1 TABLET PO (08:02)
[2024-08-29] MEDS: ASPIR LOW (ENTERIC COATED) 81 MG PO (08:02)
[2024-08-29] MEDS: FOLVITE 1 MG PO (08:02)
[2024-08-29] MEDS: DITROPAN 5 MG PO ×2 (08:02→19:32)
[2024-08-29] MEDS: LYRICA 75 MG PO ×3 (08:02→22:18)
[2024-08-29] MEDS: ATIVAN IV (08:03)
[2024-08-29] MEDS: NSS (PRESERVATIVE FREE) IV (08:03)
--- NOTE | 2024-08-29 08:33 | W.PN.UPDATE ---
Update Note
Progress Note Update
Bola is now POD#5 from his left shoulder hemiarthroplasty (DOS 24 August 2024- [facility]). subjectively this morning his shoulder feels fine. Although his concerns were for sickle cell crisis, it appears as though that has been averted. The pain is
more throughout the rest of his body. he had a moderate amount of pain overnight. Currently Afeb. Hgb 9.5. Dressing in place left shoulder without strikethrough. Good sensation in the distribution of the radial and axillary nerves. Wrist, hand,
and fingers all move well and have good sensation. Will continue with his sling. Appreciate the primary team with pain control. Hoping we can discharge home in the next 24 hours. May have the sling off in bed. OOB ad javier. Will continue to
follow along. outpatient follow-up 2 weeks from surgery with [address] Arce's PAs
[2024-08-29] MEDS: ZOFRAN 4 MG IV ×2 (10:27→18:53)
[2024-08-29] MEDS: ROXICODONE 15 MG PO ×2 (12:39→18:19)
[2024-08-29] MEDS: VITAMIN B-12 1000 MCG PO (12:39)
--- NOTE | 2024-08-29 14:30 | W.PN.HOSP.TC ---
Today's Communication/Plan
-
wean Fentanyl frequency
oral opiates
AM Retic count
Assessment / Plan
Assessment / Plan
Assessment:
Sickle cell ezypcg-guyk-ojqznyavp crisis
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
- allergy to Dilaudid, Morphine and Sulfa
- continue Fentanyl prn - wean to q4h prn. Will also pursue dose reduction
- check daily retic count
s/p left shoulder arthroplasty performed for avascular necrosis
- orthopedics follow up
GERD
- continue PPI
Essential HTN
- continue ALEXANDRO
BPH
- continue Flomax
COPD/Asthma-Followed by sketch liner in [place]-maintained on Breztri and albuterol as needed-has home oxygen as needed for sickle cell not lung disease
Migraines
DIAZ resolved with weight loss.
Rheumatoid arthritis.
Spinal stenosis
Recurrent DVT on chronic anticoagulation
DVT ppx: Xarelto
Code: Full
Anticipated Discharge: > 48 hours
Subjective/Interval History
-
Date of Service: August 29, 2024
continues with Fentanyl pushes (roughly every 3.5 hours)
Objective Data
-
Labs:
Laboratory Results
08/29/24
03:49
WBC 12.4 H
Hgb 9.5 L
Hct 25.8 L
Plt Count 210
Total Bilirubin 0.7
AST 24
ALT 28
Alkaline Phosphatase 85
Vital Signs:
Vital Signs
Temp Pulse Resp BP Pulse Ox
98.2 F 76 15 111/97 99
08/29/24 11:56 08/29/24 11:00 08/29/24 11:00 08/29/24 11:00 08/29/24 10:15
I&O
08/28/24 08/29/24 08/30/24
06:59 06:59 06:59
Intake Total 3555 / 3630 2280 / 2715 1215 / 1215
Output Total 3095 / 3095 4025 / 4880 1550 / 1550
Balance 460 / 535 -1745 / -2110 -335 / -335
Physical Exam
-
General: No Apparent Distress
HEENT: Normocephalic and Atraumatic
Respiratory: Negative Wheezes
Cardiac: Regular Rhythm and S1/S2
GI: Soft
Genito-urinary: No Costovertebral Tender
Neuro: AO x 3
Psych: Calm
Data Reviewed
-
Total Time Spent with Patient (in minutes): 42
Labs: Labs Reviewed by me
--- NOTE | 2024-08-29 14:41 | W.PN.INTV ---
Today's Communication / Plan
Recommendations
- Continue incentive spirometry
- Pain control with oral oxycodone and as needed fentanyl, titrate as tolerated
Assessment
-
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
sickle cell crisis-drug department worker consulted for sickle cell crisis/pain management/critical care management 08/26/2024.
#1. Sickle cell qcyuwr-nljv-qongfptcr crisis. Patient was transferred to ICU for clinical concern for sickle cell crisis. Continue supplemental O2, saturating currently well. Continue incentive spirometry to decrease risk of acute chest syndrome.
X-rays otherwise unremarkable and presentation is not suggestive of acute chest syndrome.
-Continue treatment with analgesia. Demerol was working well however supply is extremely low. Currently on fentanyl IV as well as oxycodone p.o. twice daily, 15 mg. Continue Lyrica 75 p.o. 3 times daily.
-Hemoglobin stable. No prior history of exchange transfusion.
-Continue gentle IV fluids, no indication for blood transfusion
#2. Status post left shoulder hemiarthroplasty.
- Orthopedic service on case.
#3. History of COPD/asthma overlap. Follows up with a airplane dispatch clerk in [facility].
-Takes Breztri at home. Currently on DuoNeb as well as Symbicort.
-No wheezing on exam. No indication for steroids or antibiotics. WBC count minimally elevated.
#4. History of DVT.
-Currently on Xarelto
Conditions present prior to admission:
Avascular necrosis.
BPH.
Hypertension.
Migraines.
DIAZ resolved with weight loss.
Rheumatoid arthritis.
Spinal stenosis.
Appendectomy. Cholecystectomy. Small bowel obstruction/resection.. Bi hip arthroplasty.
Critical care statement: A total of 45 minutes of critical care time was provided for this patient today. This includes management of unstable vital signs, evaluation of the patient at bedside, reviewing the patient's pertinent medical records
including radiographs, microbiology, laboratory evaluations, and discussion with primary team, consultants, pharmacy, nutrition, physical therapy, case management, charge nurse, critical care nursing, and respiratory therapy.
Subjective Dataa
Subjective Data
Date of Service:
Date of Service: August 29, 2024
Chief Complaint: Sanitation Engineer Follow Up
Subjective:
Patient comfortably sitting in chair, pain control adequate currently.
Review of Systems
Genitourinary: Other (All 14 systems reviewed and negative except as stated above in the history of present illness.)
Objective Data
Data Reviewed
Vital Signs / I&O / Oxygen:
Vital Signs
Temp Pulse Resp BP Pulse Ox
98.2 F 75 18 157/100 96
08/29/24 11:56 08/29/24 14:11 08/29/24 14:11 08/29/24 14:11 08/29/24 14:11
Intake and Output
08/28/24 08/29/24 08/30/24
06:59 06:59 06:59
Intake Total 3555 / 3630 2280 / 2715 1920 / 1920
Output Total 3095 / 3095 4025 / 4825 2250 / 2250
Balance 460 / 535 -1745 / -2110 -330 / -330
SaO2 96
Nasal Cannula flow liters per 2
minute
Physical Exam
General: Comfortable
HEENT: Normocephalic and Anicteric
Cardiovascular: S1-S2 and Regular Rhythm
Respiratory: Clear, Non-Labored Respirations and Other (Unremarkable pulmonary exam.)
GI: Soft, Distended (Abdominal obesity), Non Tender and Normal Bowel Sounds
Neurology: Awake, Alert and Oriented
Skin: Warm and Dry
Labs/Micro/Reports
Lab Data
08/29/24 03:49
08/28/24 03:47
--- NOTE | 2024-08-29 14:43 | CM ---
Reviewed the chart notes and spoke with the patient at the bedside. Explained to patient still searching for VN agency to accept. Patient not sure he needs VN at discharge. Patient resides with his spouse. CM continues to be available to
patient/family and is monitoring medical plan for needs at discharge.
Plan: Discharge to home when medically stable with VN if able to find an agency to accept.
--- NOTE | 2024-08-29 15:46 | PTCARENOTE ---
med as noted in MAR, resting at present, otherwise no change in assessment.
[2024-08-29] MEDS: MIRALAX 17 GRAMS PO (17:45)
[2024-08-29] MEDS: XARELTO 10 MG PO (17:51)
[2024-08-29] MEDS: NSS (PRESERVATIVE FREE) 0.5 ML IV (19:32)
[2024-08-29] MEDS: ATIVAN 1 MG IV (19:32)
[2024-08-29] MEDS: MILK OF MAGNESIA 30 ML PO (22:18)
[2024-08-30] VITALS (21 sets, daily range): BP systolic 113–166; BP diastolic 72–108; BMI 35.0
[2024-08-30] MEDS: TYLENOL PO (00:23)
[2024-08-30] MEDS: TYLENOL 650 MG PO ×5 (03:02→20:44)
[2024-08-30] MEDS: SUBLIMAZE 100 MCG IV ×2 (03:03→07:50)
--- NOTE | 2024-08-30 03:35 | PTCARENOTE ---
Pt received at 19:00, c/o generalized pain 7/10, L shoulder 'not too bad'. PRN fentanyl IVP given as ordered approx 19:30. Prior to being due for next PRN fentanyl dose, pt states that he was trying to wait until after the 4hr chasity, however he is
unable as pain is now 7/10 again at 22:50. x1 fentanyl IVP ordered and administered.
[2024-08-30 03:43] LABS: Hematocrit 25.6 % (39.0-52.0); Hemoglobin 9.3 g/dL (13.0-18.0); Mean Corp Hgb Conc. 36.3 g/dL (33.0-37.0); Mean Corpuscular Hgb 29.9 pg (27.0-31.0); Mean Corpuscular Volume 82.3 fL (80.0-94.0); Mean Platelet Volume 11.3 fL (7.4-10.4); Platelet Count 222 10^3/uL (130-400); Red Blood Cell Count 3.11 10^6/uL (4.70-6.10); Red Cell Dist. Width 14.6 % (11.5-14.5); Reticulocyte Count 2.8 % (0.4-2.8); White Blood Cell Count 10.8 10^3/uL (4.8-10.8)
[2024-08-30 03:57] LABS: Blood Urea Nitrogen 11 mg/dl (9-20); Calcium 8.3 mg/dl (8.4-10.2); Carbon Dioxide 33 mmol/L (22-30); Chloride 107 mmol/L (98-107); Estimated Creatinine Clearance 115 ml/min; Glucose 109 mg/dl (70-99); Potassium 4.2 mmol/L (3.5-5.1); Sodium 144 mmol/L (135-145); eGFR > 60.00
--- NOTE | 2024-08-30 06:10 | W.PN.UPDATE ---
Update Note
Progress Note Update
Patient seen and examined by Orthopedic surgery this morning. POD #6 left shoulder hemiarthroplasty performed on 08/24/[address] Arce. He reports episodes of increased pain last night; describes pain more throughout the rest of his body (back
and legs). Denies any complaints of pain about his left shoulder this morning. Currently in sling/pillow. Mepilex dressing remains CDI. Digital range of motion intact. Shoulder ROM deferred. Sensation intact to light touch about the axillary,
radial, and ulnar distributions. Hgb 9.3 Appreciate all teams involved with care of this patient. Continue with treatment/pain control per primary team. Can take periodic breaks from sling while resting in bed for comfort and hygiene as needed.
Sling while OOB. Orthopedic surgery will continue to follow along. He will follow-up as an outpatient 10 to 14 days post-op for staple removal, radiographs and clinical examination.
[2024-08-30] MEDS: DUONEB INH (07:28)
[2024-08-30] MEDS: SYMBICORT 160/4.5 MCG INHALER INH (07:28)
--- NOTE | 2024-08-30 07:30 | PTCARENOTE ---
Patient received lying in bed, awake, groggy and oriented. He is without apparent signs of distress or discomfort. However, he c/o pain 'all over' 12/04. Prn pain medications given as needed, scheduled pain meds as well, see JUN. BP slightly
elevated. See assessment charted in worklist. BBS diminished and fine crackles posteriorly, resps. shallow. Encouraged to deep breathe and cough. Sats 98% on 2L/nc. SR with 1st degree AVB on CM. Bed in low and locked position, call metz in reach.
Patient advised to call for assistance if needs to get OOB, verbalized understanding.
[2024-08-30] MEDS: ATIVAN 1 MG IV ×2 (07:48→20:45)
[2024-08-30] MEDS: ALTACE 20 MG PO (07:48)
[2024-08-30] MEDS: THERAGRAN 1 TABLET PO (07:49)
[2024-08-30] MEDS: VITAMIN C 500 MG PO (07:49)
[2024-08-30] MEDS: OXYCONTIN (CONTROLLED RELEASE) 15 MG PO ×2 (07:49→20:45)
[2024-08-30] MEDS: COLACE 100 MG PO ×2 (07:51→20:45)
[2024-08-30] MEDS: SENOKOT 17.2 MG PO ×2 (07:51→20:45)
[2024-08-30] MEDS: PROTONIX 40 MG PO (07:51)
[2024-08-30] MEDS: ASPIR LOW (ENTERIC COATED) 81 MG PO (07:52)
[2024-08-30] MEDS: VITAMIN D3 (cholecalciferol) 50 MCG PO (07:53)
[2024-08-30] MEDS: FOLVITE 1 MG PO (07:53)
[2024-08-30] MEDS: PLAQUENIL 200 MG PO ×2 (07:53→20:44)
[2024-08-30] MEDS: MIRALAX 17 GRAMS PO (07:53)
[2024-08-30] MEDS: NSS (PRESERVATIVE FREE) 0.5 ML IV ×2 (07:54→20:43)
[2024-08-30] MEDS: LYRICA 75 MG PO (07:59)
[2024-08-30] MEDS: DITROPAN 5 MG PO ×2 (07:59→20:44)
[2024-08-30] MEDS: VITAMIN B-12 1000 MCG PO (08:00)
--- NOTE | 2024-08-30 08:57 | CM ---
Received call from Nani nieves with [facility]. Provided the PCP information, as well as, attending information.
[facility]
[2024-08-30] MEDS: MOTRIN 600 MG PO ×3 (09:05→20:44)
[2024-08-30] MEDS: NSS 1000 IV ×2 (09:08→23:01)
--- NOTE | 2024-08-30 10:00 | PTCARENOTE ---
OOB to chair. Gait steady.
[2024-08-30] MEDS: LYRICA 25 MG PO (11:00)
--- NOTE | 2024-08-30 11:22 | W.PN.HOSP.TC ---
Today's Communication/Plan
-
wean Fentanyl dose today
introduce Motrin
Lyrica titrated
encourage oral pain meds
Assessment / Plan
Assessment / Plan
Assessment:
Sickle cell junblw-txpa-oaezfhqbf crisis
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
- allergy to Dilaudid, Morphine and Sulfa
- continue Fentanyl prn - wean to q4h prn and now wean to 50 mcg. Ongoing lower titrations
- continue home OxyContin and prn Oxycodone.
- continue Tylenol and added Motrin 5/6
- continue Lyrica - titrated 08/30
- retic count normal
s/p left shoulder arthroplasty 08/24 performed for avascular necrosis
- orthopedics follow up as an outpatient 10 to 14 days post-op for staple removal, radiographs and clinical examination
- continue Lyrica - titrate
GERD
- continue PPI
Essential HTN
- continue ALEXANDRO
BPH
- continue Flomax
COPD/Asthma-Followed by communications scientist in [place]-maintained on Breztri and albuterol as needed-has home oxygen as needed for sickle cell not lung disease
Migraines
DIAZ resolved with weight loss.
Rheumatoid arthritis.
Spinal stenosis
Recurrent DVT on chronic anticoagulation
DVT ppx: Xarelto
Code: Full
Anticipated Discharge: > 48 hours
Subjective/Interval History
-
Date of Service: August 30, 2024
using Fentanyl less frequently, reports 8/10 pain, requesting Motrin to help adjunctively with oral opiates and Tylenol
Objective Data
-
Labs:
Laboratory Results
08/30/24
03:17
WBC 10.8
Hgb 9.3 L
Hct 25.6 L
Plt Count 222
Sodium 144
Potassium 4.2
Chloride 107
Carbon Dioxide 33 H
BUN 11
Creatinine 0.8
Glucose 109 H
Calcium 8.3 L
Vital Signs:
Vital Signs
Temp Pulse Resp BP Pulse Ox
98.0 F 65 12 147/103 100
08/30/24 08:00 08/30/24 10:00 08/30/24 10:00 08/30/24 10:00 08/30/24 10:00
I&O
08/29/24 08/30/24 08/31/24
06:59 06:59 06:59
Intake Total 2280 / 2715 4080 / 4155 735 / 735
Output Total 4025 / 4825 5150 / 5625 1750 / 1750
Balance -1745 / -2110 -1070 / -1470 -1015 / -1015
Physical Exam
-
General: No Apparent Distress
HEENT: Normocephalic and Atraumatic
Respiratory: Negative Wheezes
Cardiac: Regular Rhythm and S1/S2
GI: Soft and Nontender
Neuro: AO x 3
Psych: Calm
Data Reviewed
-
Total Time Spent with Patient (in minutes): 42
Labs: Labs Reviewed by me
--- NOTE | 2024-08-30 11:30 | PTCARENOTE ---
Complete cares given, CHG cloth bath, brushed teeth, complete linen change. Left arm immobilizer repositioned correctly. Continues to have pain, medicated as indicated. Essentially no change in patient's physical assessment.
[2024-08-30] MEDS: ROXICODONE 20 MG PO (11:53)
[2024-08-30] MEDS: SUBLIMAZE 50 MCG IV ×2 (13:48→17:50)
[2024-08-30] MEDS: ZOFRAN 4 MG IV (13:55)
[2024-08-30] MEDS: LYRICA 100 MG PO ×2 (15:39→22:04)
--- NOTE | 2024-08-30 16:00 | PTCARENOTE ---
Patient has been doing well with activity today, Sitting at the edge of the bed, OOB to chair, BRP with SBA. Good appetite. No CP or SOB. One episode of nausea without vomiting, medicated with Zofran with relief from nausea. Otherwise, no change in
physical assessment. He has worked with OT today. No change on CM. Medicated for pain as needed.
--- NOTE | 2024-08-30 16:06 | W.PN.INTV ---
Addendum entered and electronically signed by Baldomero Diaz MD 08/31/24 13:09:
08/31
Patient stable and transferring out from ICU to med-surg bed.
Change IV Ativan 1 mg BID scheduled to PO as PRN.
Java Project Manager service will sign off, please call as needed.
Original Note:
Today's Communication / Plan
Recommendations
-Continue O2 and incentive spirometry
-Pain control per primary team
Assessment
-
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
sickle cell crisis-healthcare network pricing consultant consulted for sickle cell crisis/pain management/critical care management 08/26/2024.
#1. Sickle cell lgmlpl-jafr-ajuzfxafn crisis. Patient was transferred to ICU for clinical concern for sickle cell crisis. Continue supplemental O2, saturating currently well. Continue incentive spirometry to decrease risk of acute chest syndrome.
X-rays otherwise unremarkable and presentation is not suggestive of acute chest syndrome.
-Continue treatment with analgesia. Demerol was working well however supply is extremely low. Currently on fentanyl IV as well as oxycodone p.o. twice daily, 15 mg and additional 20 mg PRN. Lyrica uptitrated.
-Hemoglobin stable. No prior history of exchange transfusion. 9.3 today from 9.5 yesterday. WBC normal 10.8 and Platelets 222.
-Continue gentle IV fluids, no indication for blood transfusion
#2. Status post left shoulder hemiarthroplasty.
- Orthopedic service on case.
#3. History of COPD/asthma overlap. Follows up with a regional ehs manager in [facility].
-Takes Breztri at home. Currently on DuoNeb as well as Symbicort while here.
-No wheezing on exam. No indication for steroids or antibiotics. WBC count normal
#4. History of DVT.
-Currently on Xarelto
Conditions present prior to admission:
Avascular necrosis.
BPH.
Hypertension.
Migraines.
DIAZ resolved with weight loss.
Rheumatoid arthritis.
Spinal stenosis.
Appendectomy. Cholecystectomy. Small bowel obstruction/resection.. Bi hip arthroplasty.
Critical care statement: A total of 41 minutes of critical care time was provided for this patient today. This includes management of unstable vital signs, evaluation of the patient at bedside, reviewing the patient's pertinent medical records
including radiographs, microbiology, laboratory evaluations, and discussion with primary team, consultants, pharmacy, nutrition, physical therapy, case management, charge nurse, critical care nursing, and respiratory therapy.
Subjective Dataa
Subjective Data
Date of Service:
Date of Service: August 30, 2024
Chief Complaint: Java Project Manager Follow Up
Objective Data
Data Reviewed
Vital Signs / I&O / Oxygen:
Vital Signs
Temp Pulse Resp BP Pulse Ox
97.8 F 72 18 114/76 94
08/30/24 15:54 08/30/24 16:00 08/30/24 16:00 08/30/24 16:00 08/30/24 16:00
Intake and Output
08/29/24 08/30/24 08/31/24
06:59 06:59 06:59
Intake Total 2280 / 2715 4080 / 4155 1590 / 1590
Output Total 4025 / 4825 5150 / 5625 1750 / 1750
Balance -1745 / -2110 -1070 / -1470 -160 / -160
SaO2 94
Nasal Cannula flow liters per 2
minute
Physical Exam
General: Comfortable
HEENT: Normocephalic and Anicteric
Cardiovascular: S1-S2 and Regular Rhythm
Respiratory: Clear, Non-Labored Respirations and Other (Unremarkable pulmonary exam.)
GI: Soft, Distended (Abdominal obesity), Non Tender and Normal Bowel Sounds
Neurology: Awake, Alert and Oriented
Skin: Warm and Dry
Labs/Micro/Reports
Lab Data
08/30/24 03:17
08/30/24 03:17
[2024-08-30] MEDS: ROXICODONE 15 MG PO ×2 (16:35→20:44)
--- NOTE | 2024-08-30 17:04 | W.PN.ONC ---
Today's Communication / Plan
-
He was certainly stable, with at least some sense of slow continued improvement. Hematologically very acceptable at this point. Continue current management.
Impression
Impression
Hemoglobin SC disease
s/p Left shoulder hemiarthroplasty 08/24/2024
post operative pain
opioid tolerance/dependence
on chronic DOAC for hx VTE
Plan
Plan
1. Sickle cell disease
-now w/ component of pain secondary to sickle cell crisis
-pain improved w/ current analgesia
-CBC demonstrated mild anemia w/ chronic low grade hemolysis
-follow CBC and reticulocyte count
-IVF/ oxygen support
-pt has outpt car dealer -Dr. Vandana Castañeda at [place] - with whom he has followed for years
Subjective/Objective
Subjective/Objective
He says he is just having mild to moderate pain at present, but tends to have much worse pain at night. When that occurs, it tends to affect most of his body. Examination is unchanged. Repeat chest x-ray shows nothing to suggest acute chest
syndrome.
Vital Signs:
Vital Signs
Temp Pulse Resp BP Pulse Ox
97.8 F 72 18 114/76 97
08/30/24 15:54 08/30/24 16:00 08/30/24 16:00 08/30/24 16:00 08/30/24 16:00
Lab Results:
Laboratory Data
WBC 10.8 10^3/uL (4.8-10.8) 08/30/24 03:17
Hgb 9.3 g/dL (13.0-18.0) L 08/30/24 03:17
Plt Count 222 10^3/uL (130-400) 08/30/24 03:17
PT 16.5 Sec (11.4-14.6) H 08/27/24 03:05
INR 1.30 08/27/24 03:05
APTT 33.2 Sec (23.4-35.0) 08/27/24 03:05
eGFR > 60.00 08/30/24 03:17
[2024-08-30] MEDS: XARELTO 10 MG PO (17:30)
--- NOTE | 2024-08-30 19:06 | PTCARENOTE ---
Report given verbally to oncoming abby, Krupa TAMEZ. Questions answered.
--- NOTE | 2024-08-30 20:00 | PTCARENOTE ---
Patient received in bed, AAOx3, complains of generalized pain. NSR on monitor, no edema noted. Lungs clear, pulse ox 98% on 2L. Abdomen round with hypoactive bowel sounds. Ate 100% dinner. Voiding in urinal. Left arm immobilized, left shoulder
dressing clean dry and intact. NV check intact. R upper arm midline with IVF infusing as ordered. Call metz within reach
[2024-08-30] MEDS: DUONEB 3 ML INH (20:05)
[2024-08-30] MEDS: SYMBICORT 160/4.5 MCG INHALER 2 PUFF INH (20:05)
[2024-08-30] MEDS: MILK OF MAGNESIA 30 ML PO (22:04)
[2024-08-31] VITALS (13 sets, daily range): BP systolic 134–164; BP diastolic 56–94; BMI 35.1
[2024-08-31] MEDS: TYLENOL PO (03:10)
[2024-08-31] MEDS: TYLENOL 650 MG PO ×4 (04:25→15:25)
[2024-08-31] MEDS: ROXICODONE 15 MG PO ×3 (04:32→15:25)
[2024-08-31 04:36] LABS: Hematocrit 26.1 % (39.0-52.0); Hemoglobin 9.6 g/dL (13.0-18.0); Mean Corp Hgb Conc. 36.8 g/dL (33.0-37.0); Mean Corpuscular Volume 81.6 fL (80.0-94.0); Mean Platelet Volume 10.7 fL (7.4-10.4); Platelet Count 220 10^3/uL (130-400); Red Cell Dist. Width 14.5 % (11.5-14.5); Reticulocyte Count 3.3 % (0.4-2.8); White Blood Cell Count 10.5 10^3/uL (4.8-10.8)
--- NOTE | 2024-08-31 04:55 | PTCARENOTE ---
Patient requesting prn pain medicine for generalized pain, given per JUN, labs sent
[2024-08-31 04:58] LABS: Blood Urea Nitrogen 12 mg/dl (9-20); Calcium 8.2 mg/dl (8.4-10.2); Carbon Dioxide 33 mmol/L (22-30); Chloride 107 mmol/L (98-107); Estimated Creatinine Clearance 114 ml/min; Glucose 88 mg/dl (70-99); Potassium 4.2 mmol/L (3.5-5.1); Sodium 144 mmol/L (135-145); eGFR > 60.00
[2024-08-31] MEDS: SUBLIMAZE 50 MCG IV ×2 (05:20→09:56)
--- NOTE | 2024-08-31 05:35 | PTCARENOTE ---
patient stating 'I need the shot', prn fentanyl given per MAR. education provided
--- NOTE | 2024-08-31 06:44 | W.PN.ONC2 ---
Today's Communication / Plan
-
Supportive care and pain control as you are doing. Hematologically stable. Stable Hgb and high normal retic count suggest that there is not significant active hemolysis right now.
Impression
Impression
Hemoglobin SC disease
s/p Left shoulder hemiarthroplasty 08/24/2024
post operative pain
opioid tolerance/dependence
on chronic DOAC for hx VTE
Plan
Plan
1. Sickle cell disease
-now w/ component of pain secondary to sickle cell crisis
-pain improved w/ current analgesia
-CBC demonstrated mild anemia w/ chronic low grade hemolysis
-follow CBC and reticulocyte count
-IVF/ oxygen support
-pt has outpt type cutter -Dr. Vandana Castañeda at [place] - with whom he has followed for years
Subjective/Objective
Chief Complaint
[facility] hematology follow-up
Subjective
Tells me that pain is stable. He says that he has step forward and step back. Pain started in his legs and transition to his right arm and back, and is now all over. Still, I think that his overall pain is slowly improving.
Vital Signs:
Vital Signs
Temp Pulse Resp BP Pulse Ox
97.5 F 55 10 158/80 98
08/30/24 23:43 08/31/24 05:00 08/31/24 05:00 08/31/24 05:00 08/31/24 05:00
Lab Results:
Laboratory Data
WBC 10.5 10^3/uL (4.8-10.8) 08/31/24 04:24
Hgb 9.6 g/dL (13.0-18.0) L 08/31/24 04:24
Plt Count 220 10^3/uL (130-400) 08/31/24 04:24
PT 16.5 Sec (11.4-14.6) H 08/27/24 03:05
INR 1.30 08/27/24 03:05
APTT 33.2 Sec (23.4-35.0) 08/27/24 03:05
eGFR > 60.00 08/31/24 04:24
Physical Exam
Cardiology: S1 and S2
Pulmonary: Clear
GI: Soft
[2024-08-31] MEDS: SYMBICORT 160/4.5 MCG INHALER 2 PUFF INH (07:30)
[2024-08-31] MEDS: DUONEB 3 ML INH (07:30)
--- NOTE | 2024-08-31 08:11 | W.PN.UPDATE ---
Update Note
Progress Note Update
Patient seen and examined by Orthopedic surgery this morning. POD #7 left shoulder hemiarthroplasty performed on 08/24/[address] Arce. Denies any complaints of pain about his left shoulder this morning, but does endorse continued pain
elsewhere in his body. Currently in sling/pillow. Mepilex dressing remains CDI. Digital range of motion intact. Shoulder ROM deferred. Sensation intact to light touch about the axillary, radial, and ulnar distributions. Hgb 9.6. Appreciate all
teams involved with care of this patient. Continue with treatment/pain control per primary team. Can take periodic breaks from sling while resting in bed for comfort and hygiene as needed. Sling while OOB. Orthopedic surgery will continue to check
on him periodically while admitted. If patient still inpatient, will remove radha this weekend.
[2024-08-31] MEDS: FOLVITE 1 MG PO (08:37)
[2024-08-31] MEDS: COLACE 100 MG PO (08:37)
[2024-08-31] MEDS: SENOKOT 17.2 MG PO (08:37)
[2024-08-31] MEDS: PLAQUENIL 200 MG PO (08:37)
[2024-08-31] MEDS: VITAMIN D3 (cholecalciferol) 50 MCG PO (08:37)
[2024-08-31] MEDS: VITAMIN C 500 MG PO (08:37)
[2024-08-31] MEDS: LYRICA 100 MG PO ×2 (08:37→15:25)
[2024-08-31] MEDS: OXYCONTIN (CONTROLLED RELEASE) 15 MG PO (08:38)
[2024-08-31] MEDS: ALTACE 20 MG PO (08:38)
[2024-08-31] MEDS: THERAGRAN 1 TABLET PO (08:38)
[2024-08-31] MEDS: ATIVAN 1 MG IV (08:38)
[2024-08-31] MEDS: PROTONIX 40 MG PO (08:38)
[2024-08-31] MEDS: MIRALAX 17 GRAMS PO (08:38)
[2024-08-31] MEDS: ASPIR LOW (ENTERIC COATED) 81 MG PO (08:38)
[2024-08-31] MEDS: DITROPAN 5 MG PO (08:38)
[2024-08-31] MEDS: NSS (PRESERVATIVE FREE) 0.5 ML IV (09:02)
--- NOTE | 2024-08-31 09:11 | PTCARENOTE ---
Updated assessment and vital sign trends ongoing. Patient very angry this morning. States, 'staff doesn't know what a black male feels like going thru sickle cell pain and crisis, says go get me a doctor and my fentanyl.' Continue supportive cares,
emotional support, teaching. Reinforce incentive spirometer, alternate pain relief measures, offer ice/warm blanket, reinforce need for early mobility. Breakfast at bedside offer assist, able to transition to sitting at bedside with supervision
only. Pain again asking to talk to Doc and be given pain medicine. Discuss plan of cares. Discuss plan to wean o2 off saturation 97% on room air, po intake of 500ml plus breakfast, voiding frequent clear yellow urine, discuss plan to ap ivf patient
again with verbal argument about what he needs. Reinforce medication schedule, reinforce previous administration times, will continue to follow. Hematology at bedside this am. Will update hospitalist and certified meeting professional team. Supportive cares ongoing.
--- NOTE | 2024-08-31 09:20 | PTCARENOTE ---
Patient sitting at side of bed eating breakfast vs as noted. Heart rate 67bpm respiratory rate 20 BP 146/56 (84). Pain remains 8-10. Await follow up in am rounds. Call metz in reach and in use. PT/OT to return.
--- NOTE | 2024-08-31 10:33 | PTCARENOTE ---
Update with Referral Coordinator and Hospitalist teams. Continue follow up pharmacy plan of cares, plan for down grade and medication schedule changes. Continue hourly rounds, sleeping when undisturbed. Plan to cap ivf. Very good po intake continue follow up
input output trends.
[2024-08-31] MEDS: VITAMIN B-12 1000 MCG PO (10:42)
--- NOTE | 2024-08-31 10:55 | W.PN.HOSP.TC ---
Today's Communication/Plan
-
stop Fentanyl
Oxycodone prn and Oxycontin - titrate as able
Assessment / Plan
Assessment / Plan
Assessment:
Sickle cell mpnzee-iljj-akaktyflx crisis
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
- allergy to Dilaudid, Morphine and Sulfa
- discontinue Fentanyl
- continue home OxyContin and prn Oxycodone, can consider titration if patient amenable.
- continue Tylenol and Motrin 5/6
- continue Lyrica - titrated 5/6
- retic count normal
s/p left shoulder arthroplasty 08/24 performed for avascular necrosis
- orthopedics follow up as an outpatient 10 to 14 days post-op for staple removal, radiographs and clinical examination
- continue Lyrica - titrate
GERD
- continue PPI
Essential HTN
- continue ALEXANDRO
BPH
- continue Flomax
COPD/Asthma-Followed by plant wrapper in [place]-maintained on Breztri and albuterol as needed-has home oxygen as needed for sickle cell not lung disease
Migraines
DIAZ resolved with weight loss.
Rheumatoid arthritis.
Spinal stenosis
Recurrent DVT on chronic anticoagulation
DVT ppx: Xarelto
Code: Full
Anticipated Discharge: 24 - 48 hours
Subjective/Interval History
-
Date of Service: August 31, 2024
using less Fentanyl
Objective Data
-
Labs:
Laboratory Results
08/31/24
04:24
WBC 10.5
Hgb 9.6 L
Hct 26.1 L
Plt Count 220
Sodium 144
Potassium 4.2
Chloride 107
Carbon Dioxide 33 H
BUN 12
Creatinine 0.8
Glucose 88
Calcium 8.2 L
Vital Signs:
Vital Signs
Temp Pulse Resp BP Pulse Ox
97.7 F 72 18 146/56 97
08/31/24 08:00 08/31/24 10:00 08/31/24 10:00 08/31/24 08:55 08/31/24 08:55
I&O
08/30/24 08/31/24 09/01/24
06:59 06:59 06:59
Intake Total 4080 / 4155 3840 / 4275 1600 / 1600
Output Total 5150 / 5625 3300 / 3300 1550 / 1550
Balance -1070 / -1470 540 / 975 50 / 50
Physical Exam
-
General: No Apparent Distress
HEENT: Normocephalic and Atraumatic
Respiratory: Negative Wheezes
Cardiac: Regular Rhythm
GI: Soft
Neuro: AO x 3
Psych: Calm
Data Reviewed
-
Total Time Spent with Patient (in minutes): 42
Labs: Labs Reviewed by me
--- NOTE | 2024-08-31 11:17 | PTCARENOTE ---
Hospitalist team at bedside. Patient very agitated resistant to plan of cares. Hospitalist team discussed at length follow up plan and medication regime. Patient remains very upset wants to be kept on fentanyl, doesn't understand need to be
downgraded nor transferred from unit or hospital. Discussing pain management, discussing pain management team he sees at home all trying to offer patient different treatment options. Very aggressive with hospitalist, despite him taking prolonged
time to help come up with treatment options and plan of cares that works for patient. Patient stating he wants to leave, wants to talk to supervisor toy parts former, wants to stay, believes he will be sent home against his will. Staff attempts at support, emotional
support or to listen what patient feels will help met with much resistance. Continue support. Await team to follow. Continue to attempt support.
--- NOTE | 2024-08-31 12:49 | PTCARENOTE ---
Patient advocate team at bedside. Continue updates in plan of cares. Patient ordered lunch, sleeping off and on when undisturbed, otherwise pain remains unchanged with whole time. Sites are multiple and range different intnesity lucero. Ortho team at
bedside reviewing events defer medical management to hospitalist team. Patient has been calling several md practices requesting medical teams to help manage his pain. Differ plan of care to hospitalist team. Await transfer orders. Await patient to
decide if he wishes to stay in hospital, continue supportive cares, ordered lunch continue with plan of cares.
[2024-08-31] MEDS: MOTRIN 600 MG PO (14:09)
--- NOTE | 2024-08-31 14:46 | PTCARENOTE ---
Patient sitting at bedside.Eating lunch. No chief complaints to offer. He states has made no decision on his care plan. Attempt to reinforce hospitalist team plan of cares, refused at this time. Continue ongoing rounds, teaching when receptive,
emotional and supportive cares ongoing. Assessment unchanged.
--- NOTE | 2024-08-31 15:42 | PTCARENOTE ---
Patient sleeping when undisturbed requesting pain medication when he wakes. Pain remains all over, vague, non specific, description varies but intensity remains unchanged. Medicated as per pain and follow up via emar and review with pharmacy.
Continue hourly rounds, safety checks call metz in use and in reach. Eating, ambulating and continues to tolerate well. Splint on while in bed as per request continue to follow medical surgical orders. Refusing further teaching and returned to
sleep.
--- NOTE | 2024-08-31 16:46 | W.PN.UPDATE ---
Update Note
Progress Note Update
Reviewed patient chart. Received RN text patient wants to leave. Upon reviewing of the chart patient pain medication were de-escalated per appropriate protocol. Was reviewed. Explained to patient the risk of leaving AGAINST MEDICAL ADVICE.
Patient is ambulating in the room. Patient was offered to stay in the hospital and continued to get evaluated by multiple medical physicians and received medical management and care by the healthcare team. Patient was also offered to continue
being monitored with blood work and monitor his hemoglobin. Patient refused. Explained the risks sickle cell pain, crisis, hypoxemia and FOR Which he verbalized understanding. Patient signed the form and left AMA.
--- NOTE | 2024-08-31 16:51 | PTCARENOTE ---
Patient call to staff to tell staff he is leaving, and he has had enough with this place. Reinforce events of day. Discuss plan of evening cares. States he wishes to leave and speak to MD. IV team made aware for line removal. Removed from monitor.
Patient refusing blood pressure. Speaking with Hospitalist team updated AMA papers. Patient presently holding papers telling MD he wants to think about it for awhile. Offer support refused. Monitor dc'd so he can ambulate arounds room. Patient
to bedside. Will await family discussion about plan of care. Patient presently medical surgical status.
--- NOTE | 2024-08-31 17:11 | PTCARENOTE ---
MId line dc'd. Update hospitalist. at bedside assist dressing. AMA papers signed. Leaving for home.
== END 2024-08-31 17:30 | disposition left against medical advice (07) | DRG 483 ==
LOC: ICU 13:38
PROVIDERS: Nurse Practitioner Acute Care; Physician Assistant Medical; ADMITTING PHYSICIAN Orthopaedic Surgery Hand Surgery; ATTENDING PHYSICIAN Internal Medicine; CONSULT PHYSICIAN Internal Medicine; CONSULT PHYSICIAN Internal Medicine Critical Care Medicine; CONSULT PHYSICIAN Internal Medicine Hematology & Oncology; FAMILY PHYSICIAN Internal Medicine
PROC: 0RRK0J6 Replacement of Left Shoulder Joint with Synthetic Substitute, Humeral Surface, Open Approach (ICD-10-PCS; 2024-08-24)
DX: M87.022 Idiopathic aseptic necrosis of left humerus (principal); D57.00 Hb-SS disease with crisis, unspecified; F11.20 Opioid dependence, uncomplicated; N40.1 Benign prostatic hyperplasia with lower urinary tract symptoms; R33.8 Other retention of urine; J44.89 Other specified chronic obstructive pulmonary disease; G47.33 Obstructive sleep apnea (adult) (pediatric); M06.9 Rheumatoid arthritis, unspecified; E66.9 Obesity, unspecified; I10 Essential (primary) hypertension; K21.9 Gastro-esophageal reflux disease without esophagitis; Z68.35 Body mass index [BMI] 35.0-35.9, adult; Z79.01 Long term (current) use of anticoagulants; Z79.82 Long term (current) use of aspirin; Z86.718 Personal history of other venous thrombosis and embolism
CPT/HCPCS: 36415; 71045; 73020; 80048; 80053; 80076; 82248; 83010; 83036; 83615; 83735; 84100; 85018; 85025; 85027; 85045; 85610; 85730; 86850; 86900; 86901; 86902; 86920; 87070; 93005; 93970; 93971; 94640; 97110; 97116; 97163; 97167; 97530; 97535